=== PATIENT | male | born 1975 | race African-American/Black ===

== ENCOUNTER 2018-03-22 10:55 | Emergency (ER) | payer SELFPAY ==
[2018-03-22 11:45] LABS: #Lymphocytes 1.2 thou/uL (1.20-3.40); #Monocytes 0.4 thou/uL (0.11-0.59); #Neutrophils 2.2 thou/uL (1.40-6.50); %Basophils 0.7 % (0.0-1.0); %Eosinophils 0.8 % (0.0-10.0); %Lymphocytes 30.7 % (21.0-51.0); %Monocytes 10.3 % (0.0-10.0); %Neutrophils 57.4 % (42.0-75.0); Hemoglobin 15.2 g/dL (14.0-18.0); Mean Corpuscular HGB CONC 35.4 g/dL (32.0-36.0); Mean Corpuscular Hemoglobin 32.9 pg (27.0-31.0); Mean Corpuscular Volume 92.9 fL (78.0-98.0); Mean Platelet Volume 6.2 fL (7.4-10.4); Platelet Count 261 thou/uL (130-400); RBC Distribution Width 10.9 % (11.5-14.5); Red Blood Cell (RBC) Count 4.61 mill/uL (4.70-6.10); White Blood Cell (WBC) Count 3.8 thou/uL (4.8-10.8)
[2018-03-22 12:04] LABS: Anion Gap 14 mmol/L (10-20); BUN (Urea Nitrogen) 5 mg/dL (8.9-20.6); Calc. Creatinine Clearance 0 mL/min (70-130); Calcium 9.3 mg/dL (7.8-10.44); Carbon Dioxide 19 mmol/L (22-29); Chloride 104 mmol/L (98-107); Estimated GFR-MDRD Greater than 90; Glucose 101 mg/dL (70-105); Potassium 4.2 mmol/L (3.5-5.1); Sodium 133 mmol/L (136-145)
--- NOTE | 2018-03-22 12:35 | RAD ---
LEFT FOOT THREE VIEWS: HISTORY: Left foot wound. Drainage. FINDINGS: Soft tissue swelling and skin defect are evident at the lateral margin of the forefoot, overlying the fifth metatarsal head. Lisfranc joint alignment is anatomic with mild osteophytosis. No acute frac ture, dislocation, or aggressive osseous destruction. Aside from the ulceration, no soft tissue gas is reliably demonstrated. IMPRESSION: 1. No acute osseous abnormalities are demonstrated. 2. Osteoarthritic changes, left foot. POS: [facility]
== END 2018-03-22 12:27 | disposition home or self-care (01) ==
LOC: ERS 10:55
DX: L97.429 Non-pressure chronic ulcer of left heel and midfoot with unspecified severity (principal); F25.9 Schizoaffective disorder, unspecified; F17.210 Nicotine dependence, cigarettes, uncomplicated; Z79.899 Other long term (current) drug therapy
CPT/HCPCS: 36415; 80048; 85025; 85652; 86140

== ENCOUNTER 2018-04-04 17:15 | Emergency (ER) | payer SELFPAY ==
--- NOTE | 2018-04-04 20:09 | RAD ---
THREE VIEW LEFT FOOT: 04/04/18 CLINICAL HISTORY: Left foot pain, wound. FINDINGS: There is marked soft tissue prominence of the lateral aspect of the left foot, distally. There is a c ircumscribed areas of increased density measuring approximately 7 mm. No fracture or dislocation. IMPRESSION: Marked abnormal soft tissues of the lateral aspect of the distal left foot. Within this region, there is a 7 mm radiopaque density that may represent a foreign body. This underlies the lateral, plantar skin surface. Correlate clinically. POS: [facility]
== END 2018-04-04 20:58 | disposition home or self-care (01) ==
LOC: ERS 17:15
DX: S91.302A Unspecified open wound, left foot, initial encounter (principal); L03.116 Cellulitis of left lower limb; F17.210 Nicotine dependence, cigarettes, uncomplicated; X58.XXXA Exposure to other specified factors, initial encounter

== ENCOUNTER 2018-05-18 18:39 | Emergency (ER) | payer SELFPAY ==
[2018-05-18] MEDS ORDERED: Ketorolac Tromethamine 30 MG/ML VIAL ONE (20:23)
[2018-05-18] MEDS ORDERED: HYDROcodone/Acetaminophen 10/325 mg Tablet ONE (20:23)
== END 2018-05-18 20:52 | disposition home or self-care (01) ==
LOC: ERS 18:39
DX: M54.5 Low back pain (principal); F17.210 Nicotine dependence, cigarettes, uncomplicated; X50.9XXA Other and unspecified overexertion or strenuous movements or postures, initial encounter
CPT/HCPCS: 96372; J1885

== ENCOUNTER 2018-09-26 18:45 | Inpatient (IN) | payer SELFPAY ==
[2018-09-26 19:45] LABS: Lavender RECEIVED; Red RECEIVED
[2018-09-26 19:51] LABS: #Basophils 0.1 thou/uL (0.0-0.2); #Eosinphils 0.1 thou/uL (0.0-0.7); #Lymphocytes 2.3 thou/uL (1.20-3.40); #Monocytes 0.5 thou/uL (0.11-0.59); #Neutrophils 8.1 thou/uL (1.40-6.50); %Basophils 0.5 % (0.0-1.0); %Eosinophils 0.7 % (0.0-10.0); %Lymphocytes 20.7 % (21.0-51.0); %Monocytes 4.8 % (0.0-10.0); %Neutrophils 73.2 % (42.0-75.0); Hemoglobin 13.7 g/dL (14.0-18.0); Mean Corpuscular HGB CONC 33.3 g/dL (32.0-36.0); Mean Corpuscular Hemoglobin 31.1 pg (27.0-31.0); Mean Corpuscular Volume 93.5 fL (78.0-98.0); Mean Platelet Volume 5.8 fL (7.4-10.4); Platelet Count 586 thou/uL (130-400); RBC Distribution Width 11.2 % (11.5-14.5); White Blood Cell (WBC) Count 11.1 thou/uL (4.8-10.8)
[2018-09-26 20:09] LABS: ALT (SGPT) 20 U/L (8-55); AST (SGOT) 31 U/L (5-34); Albumin 3.6 g/dL (3.5-5.0); Alkaline Phosphatase 129 U/L (40-150); Anion Gap 17 mmol/L (10-20); BUN (Urea Nitrogen) 7 mg/dL (8.9-20.6); Bilirubin, Total 0.6 mg/dL (0.2-1.2); Calc. Creatinine Clearance 0 mL/min (70-130); Calcium 9.3 mg/dL (7.8-10.44); Carbon Dioxide 20 mmol/L (22-29); Chloride 97 mmol/L (98-107); Estimated GFR-MDRD Greater than 90; Glucose 107 mg/dL (70-105); Protein, Total 9.6 g/dL (6.0-8.3); Sodium 130 mmol/L (136-145)
--- NOTE | 2018-09-26 20:10 | RAD ---
AP VIEW CHEST: 09/26/18 HISTORY: Preoperative chest radiograph. 42-year-old male. AP view chest demonstrates the lungs to be well aerated. No evidence of active intrathoracic disease seen. No evidence of effusions, pneumonia, or pneumothorax seen. IMPRESSION: Unremarkable AP view chest. POS: [facility]
--- NOTE | 2018-09-26 20:21 | RAD ---
THREE VIEWS LEFT FOOT: 09/26/18 HISTORY: Nonhealing wound left foot. AP, lateral, and oblique views left foot demonstrates an area of gas within the soft tissues in the r egion of the fifth metatarsophalangeal joint. There has been erosive destruction of the distal aspect of the fifth left metatarsal. Findings compatible with an ulcer. There also appears to be superior s ubluxation of the proximal portion of the proximal phalanx compared to the fifth left metatarsal head . IMPRESSION: Ulceration adjacent to and involving the fifth left metatarsophalangeal joint. POS: [facility]
[2018-09-26] MEDS ORDERED: Adacel (T-DAP) 0.5 ML SYRINGE ONE (20:37)
[2018-09-26] MEDS ORDERED: Acetaminophen 500 MG TAB ONE (20:37)
[2018-09-26] MEDS ORDERED: Piperacillin/Tazobactam 4.5 GM VIAL ONE (20:37)
[2018-09-26] MEDS ORDERED: Acetaminophen 325 MG TAB PO PRN (22:56)
[2018-09-26] MEDS ORDERED: Ondansetron ODT 4 MG TAB SL PRN (22:56)
[2018-09-26] MEDS ORDERED: Ondansetron PF 4 MG/2 ML Vial IVP PRN (22:56)
[2018-09-26] MEDS ORDERED: traMADol HCl 50 MG TAB PO SCH (23:45)
[2018-09-27 00:44] VITALS: BMI 26.0
[2018-09-27] MEDS ORDERED: Senokot S 8.6-50 MG TAB PO PRN (01:17)
[2018-09-27] MEDS: HYDROcodone/Acetaminophen 10/325 mg Tablet PO PRN ×2 (01:52→19:32)
[2018-09-27] MEDS: Nicotine 14 MG PATCH TD SCH (01:53)
[2018-09-27] MEDS: Sodium Chloride 0.9% 1,000 ML IV SCH ×2 (01:54→16:22)
[2018-09-27] MEDS ORDERED: Piperacillin/Tazobactam 4.5 GM in Sodium Chloride 0.9% 100 ML IVPB SCH (03:00)
--- NOTE | 2018-09-27 03:30 | HP ---
REASON FOR ADMISSION: Osteomyelitis to left lateral distal foot. HISTORY OF PRESENT ILLNESS AND REVIEW OF SYSTEMS: Mr. Salcedo is a pleasant 42-year-old man with no past medical history, who presents due to increased pain and swelling to the left lower leg. The patient states he has had issues with a wound on the plantar surface of the fifth MTP. He states he has completed multiple courses of antibiotics in last six months. The wound never did heal. He recalls having some sort of collection with a callus that he removed followed by immediate drainage of green discharge initially. Since then, his wound never did heal. The patient states he has had frequent ER attendances and has again been given multiple courses of antibiotics. The patient last attended two months ago. He essentially gave up on seeking medical attention for it. However, in recent days, his leg has become increasingly painful with inability to bear weight and more swollen. Apparently, his brother takes medications for lower leg edema and offered him a tablet. However, he only took it once. He has not had any dizziness or syncope. No chest pain or palpitations. The patient reports feeling generally unwell in the last two days with occasional sweats. He denies any nausea or vomiting. Denies any headaches. No abdominal pain. Denies any bowel changes or urinary symptoms. Has not noted any skin changes elsewhere. All other review of systems are negative. PAST MEDICAL HISTORY: 1. Depression. 2. Schizophrenia. 3. Schizoaffective disorder. PAST SURGICAL HISTORY: None. SOCIAL HISTORY: The patient reports drinking 2 to 3, 24 ounces of beer a day and does experience tremors occasionally in the mornings if he does not drink. He smokes a half a pack a day. Denies any illicit drug use. ALLERGIES: NO KNOWN DRUG ALLERGIES. CURRENT MEDICATIONS: None. PHYSICAL EXAMINATION: GENERAL: The patient appears well-developed, well-nourished, and in no acute distress. VITAL SIGNS: Temperature 98.6, pulse 85, respirations 16, O2 saturation 96% on room air, and blood pressure 107/62. HEENT: Normocephalic and atraumatic. Pupils are equal, round, and reactive to light. Sclerae are without icterus. Oropharynx is clear. NECK: Supple without lymphadenopathy. LUNGS: Clear to auscultation bilaterally without wheezes, rales, or rhonchi. CARDIAC: Regular rate and rhythm without audible murmurs, rubs, or gallops. ABDOMEN: Soft, nontender, and nondistended. Normoactive bowel sounds present. EXTREMITIES: The patient has an open wound on the lateral sole of his foot along the 5th MTP, measuring approximately 1.5 cm. The bone appears to be visible given its depth. It seems to be tracking through as there is a smaller of wound on the lateral aspect of his 5th MTP. Dressing, clean dressing in place. He has swelling of the lower extremity extending up to his knee with no significant warmth to touch. There was a palpable cord along the calf with calf tenderness on light palpation. No pitting edema. Sensation is normal and pedal pulses present. NEUROLOGIC: Alert and oriented x3. SKIN: Without rash or jaundice. LABORATORY DATA: White blood count 11.1, hemoglobin 13.7, and hematocrit 41.1. Sodium 130, potassium 4.0, BUN 7, creatinine 0.81, GFR greater than 90. LFTs unremarkable. Albumin 3.6. IMAGING DATA: 1. Chest x-ray on 09/26/2018, unremarkable. 2. Foot x-ray on 09/26/2018. Ulceration adjacent to and involving the 5th left metatarsophalangeal joint. Erosive destruction of the distal aspect of the 5th left metatarsal. There appears to be superior subluxation of the proximal portion of the proximal phalanx compared to the 5th left metatarsal head. Area of gas within the soft tissues in the region of the 5th metatarsophalangeal joint. IMPRESSION AND PLAN: Mr. Salcedo is being admitted for management of the following conditions: 1. Open wound to left metatarsal. The patient was placed on IV antibiotics due to concerns for osteomyelitis. Consult placed to General Surgery. The patient has two to three photos had been taken, and the wound has been dressed. Wound care consult placed as well. 2. Pain. Currently pain relieved with tramadol. Continue to monitor. 3. Rule out deep venous thrombosis. There was a palpable cord on the left lower extremity. The patient has had reduced mobility in that leg due to inability to bear weight. Venous Doppler of the left leg requested. 4. Gastrointestinal prophylaxis. 5. Venous thromboembolism prophylaxis. No mechanical SCDs given suspected deep vein thrombosis and significant swelling. Hold Lovenox as suspected DVT and also possible surgical intervention, pending surgical review tomorrow. 6. Diet. N.p.o. after midnight. The patient's case was discussed with Dr. Soto, who agrees upon care as described above. Job ID: [id number]
[2018-09-27 04:34] LABS: #Basophils 0.1 thou/uL (0.0-0.2); #Eosinphils 0.2 thou/uL (0.0-0.7); #Lymphocytes 2.2 thou/uL (1.20-3.40); #Monocytes 0.6 thou/uL (0.11-0.59); #Neutrophils 3.9 thou/uL (1.40-6.50); %Basophils 0.9 % (0.0-1.0); %Eosinophils 2.3 % (0.0-10.0); %Lymphocytes 31.1 % (21.0-51.0); %Monocytes 8.5 % (0.0-10.0); %Neutrophils 57.1 % (42.0-75.0); Hemoglobin 11.9 g/dL (14.0-18.0); Mean Corpuscular HGB CONC 33.5 g/dL (32.0-36.0); Mean Corpuscular Hemoglobin 31.3 pg (27.0-31.0); Mean Corpuscular Volume 93.4 fL (78.0-98.0); Mean Platelet Volume 5.7 fL (7.4-10.4); Platelet Count 474 thou/uL (130-400); RBC Distribution Width 11.1 % (11.5-14.5); Red Blood Cell (RBC) Count 3.79 mill/uL (4.70-6.10); White Blood Cell (WBC) Count 6.9 thou/uL (4.8-10.8)
[2018-09-27 04:47] LABS: ALT (SGPT) 15 U/L (8-55); AST (SGOT) 22 U/L (5-34); Albumin 2.9 g/dL (3.5-5.0); Alkaline Phosphatase 103 U/L (40-150); Anion Gap 11 mmol/L (10-20); BUN (Urea Nitrogen) 8 mg/dL (8.9-20.6); Bilirubin, Total 0.5 mg/dL (0.2-1.2); Calc. Creatinine Clearance 147 mL/min (70-130); Calcium 8.5 mg/dL (7.8-10.44); Carbon Dioxide 26 mmol/L (22-29); Chloride 102 mmol/L (98-107); Estimated GFR-MDRD Greater than 90; Globulin 4.8 g/dL (2.4-3.5); Glucose 107 mg/dL (70-105); Protein, Total 7.7 g/dL (6.0-8.3); Sodium 135 mmol/L (136-145)
[2018-09-27] MEDS ORDERED: Vancomycin HCl 1 GM in Premix Bag 1 BAG IVPB SCH (06:15)
[2018-09-27] MEDS: Vancomycin HCl 1.25 GM in Sodium Chloride 0.9% 250 ML 250 ML IVPB SCH ×3 (06:57→23:52)
--- NOTE | 2018-09-27 08:30 | ULT ---
LEFT LOWER EXTREMITY VENOUS ULTRASOUND: HISTORY: Left lower extremity foot ulcer and palpable cord in the mid left calf. Left calf pain. TECHNIQUE: Multiplanar, rodriguez scale, and color Doppler images were obtained in a left lower extremity venous ultr asound. Spectral analysis of the Doppler waveforms was performed. FINDINGS: The left common femoral vein, profunda femoral vein, superficial femoral vein, and popliteal vein are normal in appearance without visible thrombus. These vessels demonstrate normal compression, flow, and augmentation. The posterior tibial vein and greater saphenous vein are also patent. There is a prominent lymph node in the left inguinal region measuring 3.4 cm in greatest dimension. This lymph node still has a fatty hilum. IMPRESSION: No evidence of left lower extremity deep vein thrombosis. POS: [facility]
[2018-09-27 09:25] LABS: Bilirubin Negative (Negative); Blood, Urine Negative (Negative); Clarity CLEAR (Clear); Glucose, Urine (Dipstick) Negative (Negative); Leukocyte Negative (Negative); Nitrite Negative (Negative); Protein, Urine (Dipstick) Negative (Neg-Trace); Specific Gravity, Urine 1.021 (1.002-1.036); Urobilinogen 0.2 mg/dL (0.2-1.0)
[2018-09-27] MEDS ORDERED: Fentanyl 100 MCG/2 ML VIAL ONE (10:40)
[2018-09-27] MEDS ORDERED: Midazolam HCl 2 mg/2 ml Vial ONE (10:40)
--- NOTE | 2018-09-27 11:08 | HP ---
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 He is nondiabetic. He smokes half pack a day, drinks 3 to 4 beers a day. He has been dealing with a left foot wound for the past year. The patient is not , but lives with his girlfriend. She was on speaker phone as I discussed issues with him. SOCIAL HISTORY: Tobacco 1/2 pack per day. Alcohol 3 to 4 beers a day. MEDICATIONS: None. PAST SURGICAL HISTORY: Noncontributory. PAST MEDICAL HISTORY: Noncontributory except for depression, schizoaffective disorder, and schizophrenia. DRUG USE: None. ALLERGIES: NONE. PHYSICAL EXAMINATION: VITAL SIGNS: 6 feet, 192 pounds, 26 BMI. HEAD, EARS, EYES, NOSE, AND THROAT: Unremarkable. LUNGS: Clear to auscultation. CARDIAC: Regular rate and rhythm without murmur or gallop. ABDOMEN: Soft and nontender. Palpable femoral, popliteal, dorsalis pedis, posterior tibial pulses. Left foot reveals a plantar ulcer just plantar lateral overlying the 5th metatarsophalangeal joint. Probing of this reveals that it extends into the bone, there is exposed bone. There is thickened skin and evidence of chronic inflammation with hyperpigmentation of the skin. LABORATORY DATA: White count 11 on admission, 6.9 this morning; hemoglobin 11.9. Sodium 135, potassium 4.0, BUN 8, creatinine 0.79. Liver function tests normal. Glucose 107. X-rays, soft tissue changes. No evident osteomyelitis. ASSESSMENT AND PLAN: 1. Ulceration, left foot, present for a year. Clinically, bone is involved, although radiologic views on x-rays, it is not. There is no evidence of osteomyelitis, but clinically it involves bone. His bone is exposed in this large plantar lateral wound beneath the fifth metatarsophalangeal joint. We would recommend amputation of left 5th toe metatarsal, wound VAC application, healing by secondary intention. He should continue intravenous antibiotics in the hospital and 2 to 3 days postoperative after [facility] wound VAC is available, he could be discharged home as outpatient with outpatient wound care [facility] twice a week VAC changes. I will view the wound in Wound Care in 2 weeks. Orthotics postop shoe will be ordered and used and he is instructed to weight bear as tolerated for activity around the house postoperatively. He should avoid prolonged standing and sitting and abstain from work for the first 2 weeks. I will re-evaluate his wound in outpatient wound care in 2 weeks to address his return to work and further treatment. I expect him to be discharged home with oral antibiotics once the infected bone and nidus is resected. This wound will not heal without surgical intervention and will require amputation. 2. Tobacco abuse. Encouraged tobacco cessation. 3. Alcohol use. Encouraged alcohol cessation. 4. Schizoaffective disorder. Job ID: [id number]
[2018-09-27] MEDS ORDERED: Ibuprofen 600 MG TAB PO PRN (11:30)
[2018-09-27] MEDS ORDERED: traMADol HCl 50 MG TAB PO PRN (11:30)
[2018-09-27] MEDS ORDERED: Acetaminophen 500 MG TAB PO PRN (11:30)
[2018-09-27] MEDS ORDERED: Ondansetron HCl/PF 4 MG/2 ML Vial IVP PRN (11:52)
[2018-09-27] MEDS ORDERED: Promethazine HCl 25 MG/ML VIAL IM PRN (11:52)
[2018-09-27] MEDS ORDERED: Promethazine HCl 25 MG/ML VIAL SLOW IVP PRN (11:52)
[2018-09-27] MEDS ORDERED: Lidocaine 1% PF 5 ML VIAL ONE (12:13)
[2018-09-27] MEDS ORDERED: Ondansetron PF 4 MG/2 ML Vial ONE (12:13)
[2018-09-27] MEDS ORDERED: Dexamethasone 20 MG/5 ML VIAL ONE (12:13)
[2018-09-27] MEDS ORDERED: PHENYLEPHRINE-NS 100 MCG/ML 10 ML SYRINGE ONE (12:13)
[2018-09-27] MEDS ORDERED: PROPOFOL 200 MG/20 ML VIAL ONE (12:13)
[2018-09-27] MEDS ORDERED: Ketorolac Tromethamine 30 MG/ML VIAL ONE (12:13)
[2018-09-27] MEDS: Famotidine 20 MG TAB PO SCH ×2 (13:07→19:34)
[2018-09-27] MEDS ORDERED: Lorazepam 0.5 MG TAB PO PRN (13:56)
--- NOTE | 2018-09-27 14:00 | PDOC.PN ---
- Subjective Encounter Start Date: 09/27/18 Encounter Start Time: 09:00 Patient seen and examined for foot infection. No fever/chills. No new complaints. No overnight events - Objective Resuscitation Status - Order Detail: 09/27/18 01:17 Resuscitation Status Routine Co-Sign Provider: Resuscitation Status: FULL: Full Resuscitation MAR Reviewed: Yes Vital Signs & Weight: Vital Signs (12 hours) Temp Pulse Resp BP Pulse Ox 09/27/18 13:00 98.5 F 79 16 136/79 99 09/27/18 12:00 98.4 F 80 16 136/79 100 09/27/18 08:00 97.5 F L 65 18 118/75 100 09/27/18 04:00 97.6 F 71 20 96/60 99 Weight Admit Weight 192 lb Weight 192 lb I&O: 09/26/18 09/27/18 09/28/18 06:59 06:59 06:59 Intake Total 200 Balance 200 Result Diagrams: 09/27/18 04:16 09/27/18 04:16 Additional Labs: Laboratory Tests 09/27/18 04:16 C-Reactive Protein 10.10 H Radiology Reviewed by me: Yes (XR foot - no osteomyelitis) Phys Exam - Physical Examination Constitutional: NAD Respiratory: no wheezing, no rales, no rhonchi, clear to auscultation bilateral Cardiovascular: RRR, no rub no heaves/pulsations Gastrointestinal: soft, non-tender, no distention, positive bowel sounds Musculoskeletal: no edema left foot ulcer with dressing + Neurological: non-focal, normal sensation, moves all 4 limbs Psychiatric: normal affect, A&O x 3 Dx/Plan (1) Foot infection Code(s): L08.9 - LOCAL INFECTION OF THE SKIN AND SUBCUTANEOUS TISSUE, UNSP Status: Acute Comment: ?Osteomyelitis (2) Tobacco dependence Code(s): F17.200 - NICOTINE DEPENDENCE, UNSPECIFIED, UNCOMPLICATED Status: Acute (3) Chronic alcohol use Code(s): Z72.89 - OTHER PROBLEMS RELATED TO LIFESTYLE Status: Acute (4) Schizophrenia Code(s): F20.9 - SCHIZOPHRENIA, UNSPECIFIED Status: Acute (5) Hyponatremia Code(s): E87.1 - HYPO-OSMOLALITY AND HYPONATREMIA Status: Acute (6) Metabolic acidosis Code(s): E87.2 - ACIDOSIS Status: Acute - Plan cont current plan of care, continue antibiotics, DVT proph w/SCDs Await gen surg input -: AM labs -: A1c in AM -: NPO for surgical intervention Review of Systems - Review of Systems Respiratory: negative: Cough, Dry, Shortness of Breath, Hemoptysis, SOB with Excertion, Pleuritic Pain, Sputum, Wheezing Cardiovascular: negative: chest pain, palpitations, orthopnea, paroxysmal nocturnal dyspnea, edema, light headedness, other - Medications/Allergies Allergies/Adverse Reactions: Allergies Allergy/AdvReac Type Severity Reaction Status Date / Time No Known Allergies Allergy Verified 09/26/18 23:37 Medications: Current Medications Acetaminophen (Tylenol) 1,000 mg PO Q6H PRN PRN Reason: Moderate to Severe Pain (6-10) Hydrocodone Bitart/Acetaminophen ([place] 10/325) 2 tab PO Q4H PRN PRN Reason: Pain Last Admin: 09/27/18 01:52 Dose: 2 tab Famotidine (Pepcid) 20 mg PO BID [facility] Last Admin: 09/27/18 13:07 Dose: Not Given Fentanyl (Pacu-Sublimaze) 50 mcg SLOW IVP Q10MIN PRN PRN Reason: Moderate to Severe Pain (6-10) Stop: 09/27/18 14:53 Folic Acid (Folvite) 1 mg PO DAILY [facility] Sodium Chloride (Normal Saline 0.9%) 1,000 mls @ 75 mls/hr IV .[id number] [facility] Last Admin: 09/27/18 01:54 Dose: 1,000 mls Vancomycin HCl 1.25 gm/ Sodium (Chloride) 250 mls @ 166.667 mls/hr IVPB Q8H [facility] Last Admin: 09/27/18 06:57 Dose: 250 mls Piperacillin Sod/Tazobactam (Sod 3.375 gm/ Sodium Chloride) 100 mls @ 200 mls/ hr IVPB Q6H [facility] Ibuprofen (Motrin) 600 mg PO Q6H PRN PRN Reason: Mild-Moderate Pain (1-5) Lorazepam (Ativan) 0.5 mg PO Q4H PRN PRN Reason: ASE >9 Miscellaneous Medication (Pharmacy To Dose) 1 each IVPB ASDIR [facility] Multivitamins (Theragran) 1 tab PO DAILY [facility] Nicotine (Nicoderm Patch) 14 mg TD Q24HR [facility] Last Admin: 09/27/18 01:53 Dose: 14 mg Ondansetron HCl (Pacu-Zofran) 4 mg IVP ONE PRN PRN Reason: Nausea/Vomiting Stop: 09/27/18 14:53 Promethazine HCl (Pacu-Phenergan) 6.25 mg SLOW IVP ONE PRN PRN Reason: Nausea/Vomiting Stop: 09/27/18 14:53 Promethazine HCl (Pacu-Phenergan) 6.25 mg IM ONE PRN PRN Reason: Nausea/Vomiting Stop: 09/27/18 14:53 Senna/Docusate Sodium (Senokot S) 2 tab PO BID PRN PRN Reason: Constipation Sodium Chloride (Flush - Normal Saline) 10 ml IVF Q12HR PRN PRN Reason: Saline Flush Sodium Chloride (Flush - Normal Saline) 10 ml IVF Q12HR [facility] Last Admin: 09/27/18 12:59 Dose: Not Given Sodium Chloride (Flush - Normal Saline) 10 ml IVF PRN PRN PRN Reason: Saline Flush Thiamine HCl (Thiamine) 100 mg PO DAILY [facility] Tramadol HCl (Ultram) 50 mg PO Q6H PRN PRN Reason: Moderate Pain (4-6) Tramadol HCl (Ultram) 100 mg PO Q6H PRN PRN Reason: Severe Pain (7-10)
[2018-09-27] MEDS: Piperacillin/Tazobactam 3.375 GM in Sodium Chloride 0.9% 100 ML IVPB SCH ×3 (14:38→22:35)
--- NOTE | 2018-09-27 17:16 | OP ---
DATE OF PROCEDURE: 09/27/2018 PREOPERATIVE DIAGNOSIS: Nondiabetic infection, left foot with osteomyelitis, metatarsal and phalanx, left foot with open wound, neuropathic in character, communicating to the metatarsophalangeal joint. PROCEDURE PERFORMED: Ray amputation of left 5th metatarsal and toe with wound left open to heal by secondary intention and wound care placed a wound VACs. Excellent bleeding. Note, excellent blood supply and no evidence of PAD. Palpable pulses. Excellent bleeding at the time of operation. SURGEON: Celio Cano MD. ANESTHESIA: General. DESCRIPTION OF PROCEDURE: The patient was taken to the operating room under general anesthesia. Left lower extremity was prepared with ChloraPrep and draped in routine fashion. Incision was made for ray amputation of left 5th toe and metatarsal preserving as much skin as possible while excising the ulceration plantar lateral left foot. Incision was carried down through skin and subcutaneous tissue of the metatarsal, transected with a bone cutter resecting approximately with rongeurs and irrigated. Resected connective tissue sharply, and Wound Care Team arrived to place a wound VAC after hemostasis obtained with cautery. Job ID: [id number]
[2018-09-27 22:27] LABS: Vancomycin, Trough 13.6 ug/mL
[2018-09-28] MEDS: Nicotine 14 MG PATCH TD SCH (02:30)
[2018-09-28 04:19] LABS: #Lymphocytes 1.2 thou/uL (1.20-3.40); #Monocytes 0.3 thou/uL (0.11-0.59); #Neutrophils 5.9 thou/uL (1.40-6.50); %Basophils 0.2 % (0.0-1.0); %Eosinophils 0.6 % (0.0-10.0); %Lymphocytes 15.5 % (21.0-51.0); %Monocytes 4.3 % (0.0-10.0); %Neutrophils 79.4 % (42.0-75.0); Hemoglobin 11.5 g/dL (14.0-18.0); Mean Corpuscular HGB CONC 33.5 g/dL (32.0-36.0); Mean Corpuscular Hemoglobin 31.8 pg (27.0-31.0); Mean Corpuscular Volume 94.8 fL (78.0-98.0); Mean Platelet Volume 5.8 fL (7.4-10.4); Platelet Count 399 thou/uL (130-400); Red Blood Cell (RBC) Count 3.63 mill/uL (4.70-6.10); White Blood Cell (WBC) Count 7.5 thou/uL (4.8-10.8)
[2018-09-28] MEDS: Piperacillin/Tazobactam 3.375 GM in Sodium Chloride 0.9% 100 ML IVPB SCH ×4 (04:23→22:55)
[2018-09-28 04:25] LABS: Hemoglobin A1c 5.3 % (4.0-6.0)
[2018-09-28] MEDS: HYDROcodone/Acetaminophen 10/325 mg Tablet PO PRN (04:32)
[2018-09-28 04:37] LABS: Anion Gap 9 mmol/L (10-20); BUN (Urea Nitrogen) 7 mg/dL (8.9-20.6); Calc. Creatinine Clearance 164 mL/min (70-130); Calcium 8.5 mg/dL (7.8-10.44); Carbon Dioxide 26 mmol/L (22-29); Chloride 103 mmol/L (98-107); Estimated GFR-MDRD Greater than 90; Glucose 137 mg/dL (70-105); Potassium 4.5 mmol/L (3.5-5.1); Sodium 133 mmol/L (136-145)
[2018-09-28] MEDS: Vancomycin HCl 1.25 GM in Sodium Chloride 0.9% 250 ML 250 ML IVPB SCH ×2 (07:11→15:09)
[2018-09-28] MEDS: Multivit, Therapeutic 1 TAB PO SCH (08:10)
[2018-09-28] MEDS: Folic Acid 1 MG TAB PO SCH (08:10)
[2018-09-28] MEDS: Famotidine 20 MG TAB PO SCH (08:11)
--- NOTE | 2018-09-28 17:01 | PRG ---
DATE OF SERVICE: Tommie Salcedo is doing well today. He has had pain. He wants to go home. We are awaiting cultures from his wound. He is status post amputation of left 5th toe and metatarsal. Wound VAC in place. We are awaiting for [facility] wound VAC approval. Dr. Covarrubias, who is covering this weekend, will see him as needed. I will see him Monday if he is still in the hospital. He can be discharged home anytime on oral antibiotics once sensitivities are back and wound VAC is approved. He has outpatient wound care, [facility] VAC care next week. Job ID: [id number]
[2018-09-28] MEDS: Sodium Chloride 0.9% 1,000 ML IV SCH (17:06)
--- NOTE | 2018-09-28 18:05 | PDOC.PN ---
- Subjective Encounter Start Date: 09/28/18 Encounter Start Time: 08:30 Patient seen and examined for foot infection s/p surgery. Pain controlled. No new complaints. No overnight events - Objective Resuscitation Status - Order Detail: 09/27/18 01:17 Resuscitation Status Routine Co-Sign Provider: Resuscitation Status: FULL: Full Resuscitation MAR Reviewed: Yes Vital Signs & Weight: Vital Signs (12 hours) Temp Pulse Resp BP Pulse Ox 09/28/18 08:00 97.5 F L 54 L 18 142/83 H 99 Weight Admit Weight 192 lb Weight 192 lb I&O: 09/27/18 09/28/18 09/29/18 06:59 06:59 06:59 Intake Total 3060 Balance 3060 Result Diagrams: 09/28/18 04:12 09/28/18 04:12 Additional Labs: Laboratory Tests 09/28/18 04:12 Hemoglobin A1c 5.3 Laboratory Tests 09/27/18 04:16 C-Reactive Protein 10.10 H Phys Exam - Physical Examination Constitutional: NAD Neck: no JVD Respiratory: no wheezing, no rales, no rhonchi, clear to auscultation bilateral Cardiovascular: RRR, no rub, gallop no heaves Gastrointestinal: soft, non-tender, no distention, positive bowel sounds Musculoskeletal: no edema, pulses present foot dressing with wound vac+ Neurological: non-focal, normal sensation, moves all 4 limbs Psychiatric: normal affect, A&O x 3 Skin: no rash Dx/Plan (1) Foot infection Code(s): L08.9 - LOCAL INFECTION OF THE SKIN AND SUBCUTANEOUS TISSUE, UNSP Status: Acute Comment: ?Osteomyelitis, s/p amputation of 5th metatarsal and toe (2) Tobacco dependence Code(s): F17.200 - NICOTINE DEPENDENCE, UNSPECIFIED, UNCOMPLICATED Status: Acute (3) Chronic alcohol use Code(s): Z72.89 - OTHER PROBLEMS RELATED TO LIFESTYLE Status: Acute (4) Schizophrenia Code(s): F20.9 - SCHIZOPHRENIA, UNSPECIFIED Status: Acute (5) Hyponatremia Code(s): E87.1 - HYPO-OSMOLALITY AND HYPONATREMIA Status: Acute (6) Metabolic acidosis Code(s): E87.2 - ACIDOSIS Status: Acute - Plan cont current plan of care, continue antibiotics, DVT proph w/SCDs Cont wound care/vac -: Cont current meds as below -: DC IVF -: Cont IV Vancomycin and Zosyn -: Monitor Vancomycin level Review of Systems - Review of Systems Respiratory: negative: Cough, Dry, Shortness of Breath, Hemoptysis, SOB with Excertion, Pleuritic Pain, Sputum, Wheezing Cardiovascular: negative: chest pain, palpitations, orthopnea, paroxysmal nocturnal dyspnea, edema, light headedness, other Gastrointestinal: negative: Nausea, Vomiting, Abdominal Pain, Diarrhea, Constipation, Melena, Hematochezia, Other - Medications/Allergies Allergies/Adverse Reactions: Allergies Allergy/AdvReac Type Severity Reaction Status Date / Time No Known Allergies Allergy Verified 09/26/18 23:37 Medications: Current Medications Acetaminophen (Tylenol) 1,000 mg PO Q6H PRN PRN Reason: Moderate to Severe Pain (6-10) Famotidine (Pepcid) 20 mg PO BID [facility] Last Admin: 09/28/18 08:11 Dose: 20 mg Folic Acid (Folvite) 1 mg PO DAILY [facility] Last Admin: 09/28/18 08:10 Dose: 1 mg Vancomycin HCl 1.25 gm/ Sodium (Chloride) 250 mls @ 166.667 mls/hr IVPB Q8H [facility] Last Admin: 09/28/18 15:09 Dose: 250 mls Piperacillin Sod/Tazobactam (Sod 3.375 gm/ Sodium Chloride) 100 mls @ 200 mls/ hr IVPB Q6H [facility] Last Admin: 09/28/18 17:06 Dose: 100 mls Ibuprofen (Motrin) 600 mg PO Q6H PRN PRN Reason: Mild-Moderate Pain (1-5) Lorazepam (Ativan) 0.5 mg PO Q4H PRN PRN Reason: ASE >9 Miscellaneous Medication (Pharmacy To Dose) 1 each IVPB ASDIR [facility] Multivitamins (Theragran) 1 tab PO DAILY [facility] Last Admin: 09/28/18 08:10 Dose: 1 tab Nicotine (Nicoderm Patch) 14 mg TD Q24HR [facility] Last Admin: 09/28/18 02:30 Dose: 14 mg Senna/Docusate Sodium (Senokot S) 2 tab PO BID PRN PRN Reason: Constipation Sodium Chloride (Flush - Normal Saline) 10 ml IVF Q12HR PRN PRN Reason: Saline Flush Sodium Chloride (Flush - Normal Saline) 10 ml IVF Q12HR [facility] Last Admin: 09/28/18 09:02 Dose: Not Given Sodium Chloride (Flush - Normal Saline) 10 ml IVF PRN PRN PRN Reason: Saline Flush Last Admin: 09/28/18 04:30 Dose: 10 ml Thiamine HCl (Thiamine) 100 mg PO DAILY [facility] Last Admin: 09/28/18 08:10 Dose: 100 mg Tramadol HCl (Ultram) 50 mg PO Q6H PRN PRN Reason: Moderate Pain (4-6) Tramadol HCl (Ultram) 100 mg PO Q6H PRN PRN Reason: Severe Pain (7-10)
[2018-09-28 22:23] LABS: Vancomycin, Trough 12.2 ug/mL
[2018-09-29] MEDS: Famotidine 20 MG TAB PO SCH ×3 (00:17→20:14)
[2018-09-29] MEDS: Nicotine 14 MG PATCH TD SCH (00:17)
[2018-09-29] MEDS: Vancomycin HCl 1.5 GM in Sodium Chloride 0.9% 250 ML 300 ML IVPB SCH ×3 (00:19→16:04)
[2018-09-29] MEDS: Vancomycin HCl 1.25 GM in Sodium Chloride 0.9% 250 ML 250 ML IVPB SCH (02:37)
[2018-09-29] MEDS: Piperacillin/Tazobactam 3.375 GM in Sodium Chloride 0.9% 100 ML IVPB SCH ×4 (04:35→22:28)
[2018-09-29] MEDS ORDERED: Polyethylene Glycol 3350 17 GM Packet PO PRN (08:32)
[2018-09-29] MEDS ORDERED: Senokot 8.6 MG TAB PO PRN (08:32)
[2018-09-29] MEDS ORDERED: Nicotine 14 MG PATCH TD PRN (08:32)
--- NOTE | 2018-09-29 08:34 | PDOC.PN ---
- Subjective Encounter Start Date: 09/29/18 Encounter Start Time: 08:33 Patient seen and examined fot foot infection. Pain controlled. No new complaints. No overnight events - Objective Resuscitation Status - Order Detail: 09/27/18 01:17 Resuscitation Status Routine Co-Sign Provider: Resuscitation Status: FULL: Full Resuscitation MAR Reviewed: Yes Vital Signs & Weight: Vital Signs (12 hours) Temp Pulse Resp BP Pulse Ox 09/29/18 07:39 97.4 F L 65 18 137/93 H 99 Weight Admit Weight 192 lb Weight 192 lb I&O: 09/28/18 09/29/18 09/30/18 06:59 06:59 06:59 Intake Total 3060 3170 Output Total 2100 Balance 3060 1070 Result Diagrams: 09/28/18 04:12 09/28/18 04:12 Phys Exam - Physical Examination Constitutional: NAD Respiratory: no wheezing, no rhonchi Cardiovascular: RRR, no rub Gastrointestinal: soft, non-tender, positive bowel sounds Musculoskeletal: no edema wound vac+ Dx/Plan (1) Foot infection Code(s): L08.9 - LOCAL INFECTION OF THE SKIN AND SUBCUTANEOUS TISSUE, UNSP Status: Acute Comment: ?Osteomyelitis, s/p amputation of 5th metatarsal and toe (2) Tobacco dependence Code(s): F17.200 - NICOTINE DEPENDENCE, UNSPECIFIED, UNCOMPLICATED Status: Acute (3) Chronic alcohol use Code(s): Z72.89 - OTHER PROBLEMS RELATED TO LIFESTYLE Status: Acute (4) Schizophrenia Code(s): F20.9 - SCHIZOPHRENIA, UNSPECIFIED Status: Chronic (5) Hyponatremia Code(s): E87.1 - HYPO-OSMOLALITY AND HYPONATREMIA Status: Chronic (6) Metabolic acidosis Code(s): E87.2 - ACIDOSIS Comment: improved - Plan cont current plan of care, continue antibiotics, DVT proph w/SCDs Cont wound care/vac -: Await outpt wound care/vac approval -: Stable for dc Review of Systems - Review of Systems Respiratory: negative: Cough, Dry, Shortness of Breath, Hemoptysis, SOB with Excertion, Pleuritic Pain, Sputum, Wheezing Cardiovascular: negative: chest pain, palpitations, orthopnea, paroxysmal nocturnal dyspnea, edema, light headedness, other Gastrointestinal: Constipation. negative: Nausea, Vomiting, Abdominal Pain, Diarrhea, Melena, Hematochezia, Other - Medications/Allergies Allergies/Adverse Reactions: Allergies Allergy/AdvReac Type Severity Reaction Status Date / Time No Known Allergies Allergy Verified 09/26/18 23:37 Medications: Current Medications Acetaminophen (Tylenol) 1,000 mg PO Q6H PRN PRN Reason: Moderate to Severe Pain (6-10) Docusate Sodium (Colace) 100 mg PO BID [facility] Famotidine (Pepcid) 20 mg PO BID [facility] Last Admin: 09/29/18 00:17 Dose: 20 mg Folic Acid (Folvite) 1 mg PO DAILY [facility] Last Admin: 09/28/18 08:10 Dose: 1 mg Piperacillin Sod/Tazobactam (Sod 3.375 gm/ Sodium Chloride) 100 mls @ 200 mls/ hr IVPB Q6H [facility] Last Admin: 09/29/18 04:35 Dose: 100 mls Vancomycin HCl 1.5 gm/ Sodium (Chloride) 300 mls @ 200 mls/hr IVPB 0800,1600, 2359 [facility] Last Admin: 09/29/18 00:19 Dose: 300 mls Ibuprofen (Motrin) 600 mg PO Q6H PRN PRN Reason: Mild-Moderate Pain (1-5) Lorazepam (Ativan) 0.5 mg PO Q4H PRN PRN Reason: ASE >9 Miscellaneous Medication (Pharmacy To Dose) 1 each IVPB ASDIR [facility] Multivitamins (Theragran) 1 tab PO DAILY [facility] Last Admin: 09/28/18 08:10 Dose: 1 tab Nicotine (Nicoderm Patch) 14 mg TD Q24HR PRN PRN Reason: Smoking craving Polyethylene Glycol (Miralax) 17 gm PO DAILY PRN PRN Reason: Constipation Senna (Senokot) 2 tab PO HSPRN PRN PRN Reason: Constipation Senna/Docusate Sodium (Senokot S) 2 tab PO BID PRN PRN Reason: Constipation Sodium Chloride (Flush - Normal Saline) 10 ml IVF Q12HR PRN PRN Reason: Saline Flush Sodium Chloride (Flush - Normal Saline) 10 ml IVF Q12HR [facility] Last Admin: 09/29/18 02:36 Dose: Not Given Sodium Chloride (Flush - Normal Saline) 10 ml IVF PRN PRN PRN Reason: Saline Flush Last Admin: 09/29/18 00:18 Dose: 10 ml Thiamine HCl (Thiamine) 100 mg PO DAILY [facility] Last Admin: 09/28/18 08:10 Dose: 100 mg Tramadol HCl (Ultram) 50 mg PO Q6H PRN PRN Reason: Moderate Pain (4-6) Tramadol HCl (Ultram) 100 mg PO Q6H PRN PRN Reason: Severe Pain (7-10) Last Admin: 09/28/18 19:40 Dose: 100 mg
[2018-09-29] MEDS: traMADol HCl 50 MG TAB PO PRN ×2 (08:42→22:28)
[2018-09-29] MEDS: Docusate 100 MG CAP PO SCH ×2 (08:42→20:14)
[2018-09-29] MEDS: Multivit, Therapeutic 1 TAB PO SCH (08:42)
[2018-09-29] MEDS: Folic Acid 1 MG TAB PO SCH (08:43)
[2018-09-29 23:33] LABS: Vancomycin, Trough 17.8 ug/mL
[2018-09-30] MEDS: Vancomycin HCl 1.5 GM in Sodium Chloride 0.9% 250 ML 300 ML IVPB SCH ×3 (00:04→15:41)
[2018-09-30] MEDS: Piperacillin/Tazobactam 3.375 GM in Sodium Chloride 0.9% 100 ML IVPB SCH ×4 (03:33→22:32)
[2018-09-30] MEDS: Docusate 100 MG CAP PO SCH ×2 (08:22→20:20)
[2018-09-30] MEDS: Folic Acid 1 MG TAB PO SCH (08:22)
[2018-09-30] MEDS: Multivit, Therapeutic 1 TAB PO SCH (08:22)
[2018-09-30] MEDS: Famotidine 20 MG TAB PO SCH ×2 (08:22→20:20)
[2018-09-30] MEDS: traMADol HCl 50 MG TAB PO PRN (11:34)
--- NOTE | 2018-09-30 18:47 | PDOC.PN ---
- Subjective Encounter Start Date: 09/30/18 Encounter Start Time: 08:30 Patient seen and examined for foot infection. No fever. No new complaints. No overnight events - Objective Resuscitation Status - Order Detail: 09/27/18 01:17 Resuscitation Status Routine Co-Sign Provider: Resuscitation Status: FULL: Full Resuscitation MAR Reviewed: Yes Vital Signs & Weight: Vital Signs (12 hours) Temp Pulse Resp BP Pulse Ox 09/30/18 08:00 97.6 F 57 L 16 132/94 H 100 Weight Admit Weight 192 lb Weight 192 lb I&O: 09/29/18 09/30/18 10/01/18 06:59 06:59 06:59 Intake Total 3170 1520 3440 Output Total 2100 3725 2650 Balance 1070 -2205 790 Result Diagrams: 09/28/18 04:12 09/28/18 04:12 Phys Exam - Physical Examination Constitutional: NAD Respiratory: no wheezing, no rhonchi Cardiovascular: RRR, no rub Gastrointestinal: soft, positive bowel sounds Musculoskeletal: no edema wound vac+ Neurological: non-focal Dx/Plan (1) Foot infection Code(s): L08.9 - LOCAL INFECTION OF THE SKIN AND SUBCUTANEOUS TISSUE, UNSP Status: Acute Comment: ?Osteomyelitis, s/p amputation of 5th metatarsal and toe (2) Tobacco dependence Code(s): F17.200 - NICOTINE DEPENDENCE, UNSPECIFIED, UNCOMPLICATED Status: Acute Comment: Counselled (3) Chronic alcohol use Code(s): Z72.89 - OTHER PROBLEMS RELATED TO LIFESTYLE Status: Chronic (4) Schizophrenia Code(s): F20.9 - SCHIZOPHRENIA, UNSPECIFIED Status: Chronic (5) Hyponatremia Code(s): E87.1 - HYPO-OSMOLALITY AND HYPONATREMIA Status: Chronic (6) Metabolic acidosis Code(s): E87.2 - ACIDOSIS Comment: improved - Plan cont current plan of care, continue antibiotics, DVT proph w/SCDs Cont current meds as below -: Await outpt woundvac setup -: Change Atbx to PO at dc Review of Systems - Review of Systems Respiratory: negative: Cough, Dry, Shortness of Breath, Hemoptysis, SOB with Excertion, Pleuritic Pain, Sputum, Wheezing Cardiovascular: negative: chest pain, palpitations, orthopnea, paroxysmal nocturnal dyspnea, edema, light headedness, other - Medications/Allergies Allergies/Adverse Reactions: Allergies Allergy/AdvReac Type Severity Reaction Status Date / Time No Known Allergies Allergy Verified 09/26/18 23:37 Medications: Current Medications Acetaminophen (Tylenol) 1,000 mg PO Q6H PRN PRN Reason: Moderate to Severe Pain (6-10) Docusate Sodium (Colace) 100 mg PO BID [facility] Last Admin: 09/30/18 08:22 Dose: 100 mg Famotidine (Pepcid) 20 mg PO BID [facility] Last Admin: 09/30/18 08:22 Dose: 20 mg Folic Acid (Folvite) 1 mg PO DAILY [facility] Last Admin: 09/30/18 08:22 Dose: 1 mg Piperacillin Sod/Tazobactam (Sod 3.375 gm/ Sodium Chloride) 100 mls @ 200 mls/ hr IVPB Q6H [facility] Last Admin: 09/30/18 15:36 Dose: 100 mls Vancomycin HCl 1.5 gm/ Sodium (Chloride) 300 mls @ 200 mls/hr IVPB 0800,1600, 2359 [facility] Last Admin: 09/30/18 15:41 Dose: 300 mls Ibuprofen (Motrin) 600 mg PO Q6H PRN PRN Reason: Mild-Moderate Pain (1-5) Miscellaneous Medication (Pharmacy To Dose) 1 each IVPB ASDIR [facility] Multivitamins (Theragran) 1 tab PO DAILY [facility] Last Admin: 09/30/18 08:22 Dose: 1 tab Nicotine (Nicoderm Patch) 14 mg TD Q24HR PRN PRN Reason: Smoking craving Polyethylene Glycol (Miralax) 17 gm PO DAILY PRN PRN Reason: Constipation Senna (Senokot) 2 tab PO HSPRN PRN PRN Reason: Constipation Senna/Docusate Sodium (Senokot S) 2 tab PO BID PRN PRN Reason: Constipation Sodium Chloride (Flush - Normal Saline) 10 ml IVF Q12HR PRN PRN Reason: Saline Flush Sodium Chloride (Flush - Normal Saline) 10 ml IVF Q12HR [facility] Last Admin: 09/30/18 08:24 Dose: 10 ml Sodium Chloride (Flush - Normal Saline) 10 ml IVF PRN PRN PRN Reason: Saline Flush Last Admin: 09/30/18 15:41 Dose: 10 ml Thiamine HCl (Thiamine) 100 mg PO DAILY [facility] Last Admin: 09/30/18 08:22 Dose: 100 mg Tramadol HCl (Ultram) 50 mg PO Q6H PRN PRN Reason: Moderate Pain (4-6) Last Admin: 09/30/18 11:34 Dose: 50 mg Tramadol HCl (Ultram) 100 mg PO Q6H PRN PRN Reason: Severe Pain (7-10) Last Admin: 09/28/18 19:40 Dose: 100 mg
[2018-09-30 23:41] LABS: Vancomycin, Trough 16.7 ug/mL
[2018-10-01] MEDS: Vancomycin HCl 1.5 GM in Sodium Chloride 0.9% 250 ML 300 ML IVPB SCH ×3 (00:03→16:29)
[2018-10-01] MEDS: traMADol HCl 50 MG TAB PO PRN (01:49)
[2018-10-01] MEDS: Piperacillin/Tazobactam 3.375 GM in Sodium Chloride 0.9% 100 ML IVPB SCH ×3 (05:09→15:49)
[2018-10-01 07:27] VITALS: BP 116/81; TEMP 97.6
[2018-10-01] MEDS: Folic Acid 1 MG TAB PO SCH (08:17)
[2018-10-01] MEDS: Famotidine 20 MG TAB PO SCH (08:17)
[2018-10-01] MEDS: Multivit, Therapeutic 1 TAB PO SCH (08:17)
[2018-10-01] MEDS: Docusate 100 MG CAP PO SCH (08:17)
--- NOTE | 2018-10-02 13:01 | DIS ---
DATE OF ADMISSION: 09/26/2018 DATE OF DISCHARGE: 10/01/2018 DISCHARGE DISPOSITION: Home. FOLLOWUP: 1. Follow up with primary care physician at [facility]. 2. Follow up with Dr. Cano in 2 weeks. 3. Outpatient wound care. ALLERGIES: NO KNOWN DRUG ALLERGIES. THE PATIENT WAS SEEN AND EXAMINED ON THE DAY OF DISCHARGE. DENIES ANY NEW COMPLAINTS. OUTPATIENT WOUND VAC HAS BEEN ARRANGED. DISCHARGE MEDICATIONS: 1. Omnicef 300 mg twice a day for 10 days. 2. Doxycycline 100 mg b.i.d. for 10 days. 3. Thiamine. 4. Folic acid. 5. Multivitamin. BRIEF HOSPITAL COURSE: The patient is a 42-year-old male, who presented to the hospital with increased swelling and pain to his left foot. His workup was consistent with left foot infection with osteomyelitis. He was placed on empiric antibiotics. He was seen by Dr. Cano. He underwent ray amputation of the left 5th metatarsal and toe on 27 September 2018. His discharge was delayed due to outpatient wound care/VAC setup. He appears stable for discharge. FINAL DIAGNOSES: 1. Left foot infection, status post amputation of the left 5th metatarsal and the toe. 2. Tobacco dependence. The patient was counseled. 3. Chronic alcohol use. The patient was counseled. 4. Schizophrenia. 5. Mild hyponatremia. 6. Metabolic acidosis. PLAN: Plan was discussed with the patient in detail. He stated understanding. Job ID: [id number]
== END 2018-10-01 19:30 | disposition home or self-care (01) | DRG 475 ==
LOC: ERS 18:45 → ONC 20:30
PROVIDERS: ADMIT Emergency Medicine; ATTEND Emergency Medicine
PROC: 0Y6N0ZF Detachment at Left Foot, Partial 5th Ray, Open Approach (ICD-10-PCS; principal; 2018-09-28)
DX: M86.8X7 Other osteomyelitis, ankle and foot (principal); E87.1 Hypo-osmolality and hyponatremia; E87.2 Acidosis; F17.210 Nicotine dependence, cigarettes, uncomplicated; F32.9 Major depressive disorder, single episode, unspecified; F25.9 Schizoaffective disorder, unspecified; Z72.89 Other problems related to lifestyle; L97.524 Non-pressure chronic ulcer of other part of left foot with necrosis of bone
CPT/HCPCS: 36415; 71045; 80048; 80053; 80202; 81003; 83036; 83605; 85025; 85652; 86140; 87040; 87086; 88305; 88311; 90471; 90715; 96365; 96375; J1100; J1885; J2001; J2250; J2405; J2543; J2704; J3010; J3370; J7050

== ENCOUNTER 2018-10-03 13:33 | Outpatient (CLI) | payer SELFPAY | END 2018-10-03 13:34 | disposition home or self-care (01) | LOC: WCC 13:33 | PROVIDERS: ATTEND Family Medicine | DX: L97.529 Non-pressure chronic ulcer of other part of left foot with unspecified severity (principal); F25.9 Schizoaffective disorder, unspecified; F17.200 Nicotine dependence, unspecified, uncomplicated; F10.99 Alcohol use, unspecified with unspecified alcohol-induced disorder | CPT/HCPCS: 97605 ==

== ENCOUNTER 2018-10-05 10:48 | Outpatient (CLI) | payer SELFPAY ==
[2018-10-05] MEDS ORDERED: Sodium Chloride 0.9% 15 ML NEB ONE (15:00)
== END 2018-10-05 10:49 | disposition home or self-care (01) ==
LOC: WCC 10:48
PROVIDERS: ATTEND Family Medicine
DX: T81.89XD Other complications of procedures, not elsewhere classified, subsequent encounter (principal); Z89.422 Acquired absence of other left toe(s)
CPT/HCPCS: 97605; A4218

== ENCOUNTER 2018-10-08 11:36 | Outpatient (CLI) | payer SELFPAY ==
[2018-10-08] MEDS ORDERED: Sodium Chloride 0.9% 15 ML NEB ONE (17:28)
== END 2018-10-08 11:37 | disposition home or self-care (01) ==
LOC: WCC 11:36
PROVIDERS: ATTEND Family Medicine
DX: T81.89XD Other complications of procedures, not elsewhere classified, subsequent encounter (principal); Z89.422 Acquired absence of other left toe(s)
CPT/HCPCS: 97605; A4218

== ENCOUNTER 2018-10-10 08:11 | Outpatient (CLI) | payer SELFPAY ==
--- NOTE | 2018-10-10 09:10 | HP ---
HISTORY OF PRESENT ILLNESS: Mr. David Salcedo is a very pleasant 42-year-old gentleman, who presents to the Wound Center for evaluation of a wound of the left lateral foot subsequent to ray amputation of the left 5th metatarsal and toe on 09/27/[address] Celio Cano. Negative pressure therapy was initiated intraoperatively. Upon discharge from [facility], the patient was referred to the Wound Center for assistance with dressing changes of the wound VAC. The patient was discharged to home on doxycycline and cefdinir. PAST MEDICAL HISTORY: Negative for diabetes mellitus, hypertension, or coronary artery disease. PAST SURGICAL HISTORY: Ray amputation of left 5th metatarsal and toe/wound VAC placement on 09/27/2018. MEDICATIONS: 1. Doxycycline. 2. Cefdinir. ALLERGIES: NO KNOWN DIAGNOSED ALLERGIES. SOCIAL HISTORY: Significant for tobacco use of half pack of cigarettes per day for 20 years. The patient admits to the consumption of 2 drinks per day also for the past 20 years. FAMILY HISTORY: Significant for diabetes mellitus. The patient's mother was diagnosed with diabetes mellitus. Family history is negative for coronary artery disease. PHYSICAL EXAMINATION: VITAL SIGNS: Temperature 97.5, pulse 101, and blood pressure 127/82. GENERAL: A 42-year-old gentleman, sitting on chair in examination room, in no acute distress. HEENT: Normocephalic and atraumatic. NECK: No nuchal rigidity. CHEST: Clear to auscultation. CV: Regular rate and rhythm. ABDOMEN: Soft. EXTREMITIES: A wound of the left lateral foot is present, which measures approximately 6.1 x 4.0 cm. Granulation tissue is present within the wound margins. Necrotic and nonviable tissue present within the wound margins was debrided with an excisional full-thickness debridement with the use of a curette. No purulent drainage is associated with the wound. No erythema of the skin surrounding the wound is present. No maceration of the skin of the periwound is noted. A dorsalis pedis pulse and a posterior tibial pulse are both palpable on the left. No significant edema of the left foot is present on exam today. NEURO: Grossly nonfocal. ASSESSMENT AND PLAN: Wound of left lateral foot subsequent to ray amputation of the left 5th metatarsal and toe on 09/27/2018, by Dr. Celio Cano. Negative pressure therapy was initiated intraoperatively and will be continued with dressing changes of the wound VAC here in the Wound Center. I will see Mr. Salcedo again in 2 weeks. As stated above, the patient was discharged to home on doxycycline and cefdinir, which he is taking as prescribed. Job ID: [id number]
[2018-10-10] MEDS ORDERED: Lidocaine 2% Jelly 30 GM TUBE ONE (18:00)
[2018-10-10] MEDS ORDERED: Sodium Chloride 0.9% 15 ML NEB ONE (18:00)
== END 2018-10-10 08:12 | disposition home or self-care (01) ==
LOC: WCC 08:11
PROVIDERS: ATTEND Family Medicine
DX: T81.89XD Other complications of procedures, not elsewhere classified, subsequent encounter (principal); Z89.422 Acquired absence of other left toe(s)
CPT/HCPCS: A4218

== ENCOUNTER 2018-10-12 10:53 | Outpatient (CLI) | payer SELFPAY ==
[~2018-10-12 10:53] MED LIST: Sodium Chloride 0.9% 15 ML NEB ONE
--- NOTE | 2018-10-12 12:17 | PRG ---
DATE OF SERVICE: 10/12/2018 SUBJECTIVE: David Salcedo is seen in Wound Care today. He is status post amputation of left fifth toe and metatarsal underlying neuropathic ulcer. His wound looks good granulating. Today, he reminds me that he has finished his antibiotics. He does not need any more antibiotics. We will discontinue these. He takes multivitamins [id number]. His wound is granulating healthy. Wound Care will continue the wound VAC. I will see him in the next 2 to 3 weeks. Job ID: [id number]
== END 2018-10-12 10:54 | disposition home or self-care (01) ==
LOC: WCC 10:53
PROVIDERS: ATTEND Family Medicine
DX: Z47.81 Encounter for orthopedic aftercare following surgical amputation (principal); Z89.422 Acquired absence of other left toe(s)
CPT/HCPCS: 97605; A4218

== ENCOUNTER 2018-10-16 11:04 | Outpatient (CLI) | payer SELFPAY | END 2018-10-16 11:05 | disposition home or self-care (01) | LOC: WCC 11:04 | PROVIDERS: ATTEND Family Medicine | DX: T81.89XD Other complications of procedures, not elsewhere classified, subsequent encounter (principal) | CPT/HCPCS: 97605; A4218 ==

== ENCOUNTER 2018-10-19 16:11 | Outpatient (CLI) | payer SELFPAY | END 2018-10-19 16:12 | disposition home or self-care (01) | LOC: WCC 16:11 | PROVIDERS: ATTEND Family Medicine | DX: T81.89XD Other complications of procedures, not elsewhere classified, subsequent encounter (principal) | CPT/HCPCS: 97605; A4218 ==

== ENCOUNTER 2018-10-23 15:04 | Outpatient (CLI) | payer SELFPAY | END 2018-10-23 15:05 | disposition home or self-care (01) | LOC: WCC 15:04 | PROVIDERS: ATTEND Family Medicine | DX: T81.89XD Other complications of procedures, not elsewhere classified, subsequent encounter (principal); Z89.422 Acquired absence of other left toe(s) | CPT/HCPCS: 97605; A4218 ==

== ENCOUNTER 2018-10-26 15:33 | Outpatient (CLI) | payer SELFPAY | END 2018-10-26 15:34 | disposition home or self-care (01) | LOC: WCC 15:33 | PROVIDERS: ATTEND Family Medicine | DX: T81.89XD Other complications of procedures, not elsewhere classified, subsequent encounter (principal) | CPT/HCPCS: 99211; A4218; G0463 ==

== ENCOUNTER 2018-11-08 11:33 | Outpatient (CLI) | payer SELFPAY ==
--- NOTE | 2018-11-08 12:24 | PRG ---
DATE OF SERVICE: 11/08/2018 HISTORY: Mr. David Salcedo is a very pleasant 42-year-old gentleman, who presents to the Wound Center for evaluation of a wound of the left lateral foot subsequent to ray amputation of the left fifth metatarsal and toe on 09/27/[address] Celio Cano. Negative pressure therapy was initiated intraoperatively. Upon discharge from [facility], the patient was referred to the Wound Center for assistance with dressing changes of the wound VAC. The patient was discharged to home on doxycycline and Cefdinir. The patient has completed a course of negative pressure therapy and is now performing wet-to-dry dressing changes for the wound of his left lateral foot as per Dr. Cano. PHYSICAL EXAMINATION: VITAL SIGNS: Temperature 97.9, pulse 80, blood pressure 128/81. EXTREMITIES: A wound of the left lateral foot is present, which measures approximately 4.7 x 2.2 cm. Granulation tissue was present within the wound margins. Necrotic and nonviable tissue present within the wound margins was debrided with an excisional full-thickness debridement with the use of a curette. No purulent drainage is associated with the wound. No erythema of the skin surrounding the wound is present. No maceration of the skin of the periwound is noted. A dorsalis pedis pulse is easily palpable on the left. No significant edema of the left foot is present on exam today. ASSESSMENT AND PLAN: Wound of left lateral foot subsequent to ray amputation of the left fifth metatarsal and toe on 09/27/[address] Celio Cano. Wet-to-dry dressing changes as per Dr. Cano will be continued. The patient will continue to perform his own dressing changes. I will see Mr. Salcedo again in 2 weeks. Job ID: [id number]
[2018-11-08] MEDS ORDERED: Lidocaine 2% 11 ML SYR ONE (19:56)
[2018-11-08] MEDS ORDERED: Sodium Chloride 0.9% 15 ML NEB ONE (19:56)
== END 2018-11-08 11:34 | disposition home or self-care (01) ==
LOC: WCC 11:33
PROVIDERS: ATTEND Family Medicine
DX: T81.89XD Other complications of procedures, not elsewhere classified, subsequent encounter (principal)
CPT/HCPCS: 11042; A4218

== ENCOUNTER 2018-11-22 15:24 | Outpatient (CLI) | payer SELFPAY ==
--- NOTE | 2018-11-22 13:59 | PRG ---
DATE OF SERVICE: 11/22/2018 HISTORY: Mr. David Salcedo is a very pleasant 42-year-old gentleman, who presents to the Wound Center for evaluation of a wound of the left lateral foot subsequent to right amputation of the left 5th metatarsal and toe on 09/27/[address] Celio Caon. Negative pressure therapy was initiated intraoperatively. Upon discharge from [facility], the patient was referred to the Wound Center for assistance with dressing changes of the wound VAC. The patient was discharged to home on doxycycline and cefdinir. The patient completed a course of negative pressure therapy and continues to perform wet-to-dry dressing changes for the wound of his left lateral foot as per Dr. Cano. PHYSICAL EXAMINATION: VITAL SIGNS: Temperature 98.0, pulse 82, blood pressure 129/90. EXTREMITIES: Wound of the left lateral foot is present which measures approximately 2.7 x 1.7 cm. The dimensions of the wound at the time of the patient's visit on 11/08/2018 were approximately 4.7 x 2.2 cm. Granulation tissue is present within the wound margins. Necrotic and nonviable tissue present within the wound margins was debrided with an excisional full-thickness debridement with the use of a curette. Callus desiccated tissue and undermining associated with the wound was eliminated with the use of scissors. No purulent drainage is associated with the wound. No erythema of the skin surrounding the wound is present. No maceration of the skin of the periwound is noted. A dorsalis pedis pulse and a posterior tibial pulse are both easily palpable on the left. No significant edema of the left foot is present on exam today. ASSESSMENT AND PLAN: Wound of left lateral foot subsequent to right amputation of the left fifth metatarsal and toe on 09/27/[address] Celio Cano. Wet-to-dry dressing changes as per Dr. Cano will be continued. The patient states he will continue to perform his own dressing changes on a daily basis after cleansing and irrigation. I will see Mr. Salcedo again in 2 weeks. Job ID: [id number]
[2018-11-22] MEDS ORDERED: Sodium Chloride 0.9% 15 ML NEB ONE (18:00)
[2018-11-22] MEDS ORDERED: Lidocaine 2% 11 ML SYR ONE (18:00)
== END 2018-11-22 15:25 | disposition home or self-care (01) ==
LOC: WCC 15:24
PROVIDERS: ATTEND Family Medicine
DX: Z47.81 Encounter for orthopedic aftercare following surgical amputation (principal); Z89.422 Acquired absence of other left toe(s)
CPT/HCPCS: A4218

== ENCOUNTER 2018-12-06 11:28 | Outpatient (CLI) | payer SELFPAY ==
[2018-12-06] MEDS ORDERED: Lidocaine 2% 11 ML SYR ONE (17:23)
[2018-12-06] MEDS ORDERED: Sodium Chloride 0.9% 15 ML NEB ONE (17:23)
--- NOTE | 2018-12-06 18:06 | PRG ---
DATE OF SERVICE: 12/06/2018 HISTORY: Mr. David Salcedo is a very pleasant 42-year-old gentleman, who presents to the wound center for evaluation of a wound of the left lateral foot subsequent to amputation of the left fifth metatarsal and toe on 09/27/[address] Celio Cano. Negative pressure therapy was initiated intraoperatively. Upon discharge from [facility], the patient was referred to the wound center for assistance with dressing changes of the wound VAC. The patient was discharged to home on doxycycline and cefdinir. The patient completed a course of negative pressure therapy and continues to perform wet-to-dry dressing changes for the wound of his left lateral foot as per Dr. Cano. PHYSICAL EXAMINATION: VITAL SIGNS: Temperature 98.1, pulse 92, respirations 17, and blood pressure 130/88. EXTREMITIES: A wound of the left lateral foot is present, which measures approximately 1.6 x 2.2 cm. The dimensions of the wound at the time of the patient's visit on 11/22/2018 were approximately 2.7 x 1.7 cm. Granulation tissue is present within the wound margins. Necrotic and nonviable tissue present within the wound margins was debrided with an excisional full-thickness debridement with the use of scissors. Callus, desiccated tissue, and undermining at the periphery of the wound were also eliminated with the use of scissors. No purulent drainage is associated with the wound. No erythema of the skin surrounding the wound is present. No maceration of the skin of the periwound is noted. No significant edema of the left foot is present on exam today. ASSESSMENT AND PLAN: Wound of left lateral foot subsequent to amputation of the left fifth metatarsal and toe on 09/27/[address] Celio Cano. Wet-to-dry dressing changes as per Dr. Cano will be continued. The patient states he will continue to perform his own dressing changes on a daily basis after cleansing and irrigation. I will see Mr. Salcedo again in 2 weeks. Job ID: [id number]
== END 2018-12-06 11:29 | disposition home or self-care (01) ==
LOC: WCC 11:28
PROVIDERS: ATTEND Family Medicine
DX: T81.89XD Other complications of procedures, not elsewhere classified, subsequent encounter (principal); Z89.422 Acquired absence of other left toe(s)
CPT/HCPCS: 11042; 87070; 87076; 87077; 87186; 87205; A4218

== ENCOUNTER 2019-01-03 11:28 | Outpatient (CLI) | payer SELFPAY ==
[2019-01-03] MEDS ORDERED: Lidocaine 2% PF 100 mg/5 ml Syringe ONE (15:00)
[2019-01-03] MEDS ORDERED: Sodium Chloride 0.9% 15 ML NEB ONE (15:00)
--- NOTE | 2019-01-03 17:50 | PRG ---
DATE OF SERVICE: 01/03/2019 HISTORY: Mr. David Salcedo is a very pleasant 43-year-old gentleman, who presents to the Wound Center for evaluation of a wound of the left lateral foot subsequent to amputation of the left fifth metatarsal and toe on 09/27/[address] Celio Cano. Negative pressure therapy was initiated intraoperatively. Upon discharge from [facility], the patient was referred to the Wound Center for assistance with dressing changes of the wound VAC. The patient was discharged to home on doxycycline and cefdinir. The patient completed a course of negative pressure therapy and states he is cleansing the wound with normal saline and then applying dry gauze to the wound of his left lateral foot. PHYSICAL EXAMINATION: VITAL SIGNS: Temperature 98.2, pulse 80, respirations 20, and blood pressure 151/98. EXTREMITIES: A wound of the left lateral foot is present, which measures approximately 3.0 x 2.2 cm. The dimensions of the wound at the time of the patient's visit on 12/06/2018 were approximately 1.6 x 2.2 cm. Granulation tissue is present within the wound margins. Necrotic and nonviable tissue present within the wound margins was debrided with an excisional full-thickness debridement with the use of scissors. Callus desiccated tissue and undermining at the periphery of the wound were also eliminated with the use of scissors. No purulent drainage is associated with the wound. No erythema of the skin surrounding the wound is present. No maceration of the skin of the periwound is noted. No significant edema of the left foot is present on exam today. No bone is exposed within the margins on today's exam. ASSESSMENT AND PLAN: Wound of left lateral foot subsequent to amputation of the left fifth metatarsal and toe on 09/27/[address] Celio Cano. Dressing changes of Xeroform followed by gauze will be initiated today. These dressing changes are to be performed on a daily basis after cleansing and irrigation. The patient states he will continue to perform his own dressing changes. I will see Mr. Salcedo again in 2 weeks. The patient states that he was unable to fill the prescription for ciprofloxacin given to him at the time of his last visit. He states that he misplaced the prescription. Tissue cultures obtained on 12/06/2018 revealed the growth of Pseudomonas aeruginosa sensitive to ciprofloxacin in addition to Citrobacter amalonaticus also sensitive to ciprofloxacin. The patient agrees to return to the Wound Center in 2 weeks. Job ID: [id number]
== END 2019-01-03 11:29 | disposition home or self-care (01) ==
LOC: WCC 11:28
PROVIDERS: ATTEND Family Medicine
DX: T81.89XD Other complications of procedures, not elsewhere classified, subsequent encounter (principal); Z89.422 Acquired absence of other left toe(s)
CPT/HCPCS: 11042; A4218; J2001

== ENCOUNTER 2019-01-24 12:24 | Outpatient (CLI) | payer SELFPAY ==
[2019-01-24] MEDS ORDERED: Lidocaine 2% PF 100 mg/5 ml Syringe ONE (15:00)
[2019-01-24] MEDS ORDERED: Sodium Chloride 0.9% 15 ML NEB ONE (15:00)
--- NOTE | 2019-01-24 16:12 | PRG ---
DATE OF SERVICE: 01/24/2019 SUBJECTIVE: Mr. David Salcedo is a very pleasant 43-year-old gentleman, who presents to the Wound Center for evaluation of a wound of the left lateral foot subsequent to amputation of the left fifth metatarsal and toe on 09/27/[address] Celio Cano. Negative pressure therapy was initiated intraoperatively. Upon discharge from [facility], the patient was referred to the Wound Center for assistance with dressing changes of the wound VAC. The patient was discharged to home on doxycycline and cefdinir. The patient completed a course of negative pressure therapy and is now performing dressing changes of Xeroform on a daily basis after cleansing and irrigation. OBJECTIVE: VITAL SIGNS: Temperature 98.1, pulse 87, respirations 17, and blood pressure 135/88. EXTREMITIES: An ulceration of the left lateral foot is present, which measures approximately 2.5 x 2.0 cm. The dimensions of the wound at the time of the patient's visit on 01/03/2019 were approximately 3.0 x 2.2 cm. Granulation tissue is present within the wound margins. Necrotic and nonviable tissue present within the wound margins were debrided with an excisional full-thickness debridement. Callus desiccated tissue and undermining at the periphery of the wound were eliminated with the use of scissors. No purulent drainage is associated with the wound. No erythema of the skin surrounding the wound is present. Maceration of the skin of the periwound is noted. The periwound also has a green discoloration. Edema of the left foot is present on exam today. No bone is exposed within the margins of the wound on exam today. ASSESSMENT AND PLAN: 1. Wound of left lateral foot subsequent to amputation of the left fifth metatarsal and toe on 09/27/[address] Celio Cano. Dressing changes of Xeroform followed by gauze will be continued on a daily basis after cleansing and irrigation. The patient states he will continue to perform his own dressing changes. The patient has been asked to return to the Wound Center in 1 week. At this time, the wound will be viewed by Dr. Cano if possible. Tissue cultures obtained on 12/06/2018 revealed a growth of Pseudomonas aeruginosa sensitive to ciprofloxacin, in addition to Citrobacter amalonaticus, also sensitive to ciprofloxacin. As the patient was placed on a course of ciprofloxacin in view of the green discoloration of the periwound, the patient has been given another prescription for ciprofloxacin 500 mg #20 one p.o. b.i.d. x10 days. The patient has also been given a work release for the next 2 weeks. In addition, Mr. Salcedo has been asked to discontinue the use of all tobacco. 2. Tobacco use. As stated above, the patient has been asked to discontinue all use of tobacco. Job ID: [id number]
== END 2019-01-24 12:25 | disposition home or self-care (01) ==
LOC: WCC 12:24
PROVIDERS: ATTEND Family Medicine
DX: T81.89XD Other complications of procedures, not elsewhere classified, subsequent encounter (principal); Z72.0 Tobacco use
CPT/HCPCS: 11042; A4218; J2001

== ENCOUNTER 2019-01-31 11:01 | Outpatient (CLI) | payer SELFPAY ==
--- NOTE | 2019-01-31 10:53 | PRG ---
DATE OF SERVICE: 01/31/2019 HISTORY: Mr. David Salcedo is a very pleasant 43-year-old gentleman, who presents to the Wound Center for evaluation of a wound of the left lateral foot subsequent to amputation of the left fifth metatarsal and toe on 09/27/[address] Celio Cano. Negative pressure therapy was initiated intraoperatively. Upon discharge from [facility], the patient was referred to the Wound Center for assistance with dressing changes of the wound VAC. The patient was discharged to home on doxycycline and cefdinir. The patient completed a course of negative pressure therapy and is presently performing dressing changes of Xeroform on a daily basis after cleansing and irrigation. PHYSICAL EXAMINATION: VITAL SIGNS: Temperature 98.3, pulse 82, respirations 17, blood pressure 132/96. EXTREMITIES: An ulceration of the left lateral foot is present which measures approximately 2.0 x 2.0 cm. The dimensions of the wound at the time of the patient's visit on 01/24/2019 were approximately 2.5 x 2.0 cm. Granulation tissue is present within the wound margins. Necrotic and nonviable tissue present within the wound margins was debrided with an excisional full-thickness debridement with the use of scissors and a curette. Callus desiccated tissue and undermining at the periphery of the wound were eliminated with the use of scissors. No purulent drainage is associated with the wound. No erythema of the skin surrounding the wound is present. No maceration of the skin of the periwound is noted. No significant edema of the left foot is present on exam today. No bone is exposed within the wound margins on today's exam. ASSESSMENT AND PLAN: 1. Wound of left lateral foot subsequent to amputation of the left fifth metatarsal and toe on 09/27/[address] Celio Cano. Dressing changes of Xeroform followed by gauze will be continued on a daily basis after cleansing and irrigation. The patient states he will continue to perform his own dressing changes. I will see Mr. Salcedo again in 1 week. Again, Mr. Salcedo has been asked to discontinue the use of all tobacco. 2. Tobacco use. The patient states that he is still smoking. Job ID: [id number]
[2019-01-31] MEDS ORDERED: Sodium Chloride 0.9% 15 ML NEB ONE (11:11)
== END 2019-01-31 11:02 | disposition home or self-care (01) ==
LOC: WCC 11:01
PROVIDERS: ATTEND Family Medicine
DX: T81.89XD Other complications of procedures, not elsewhere classified, subsequent encounter (principal); Z89.422 Acquired absence of other left toe(s); Z72.0 Tobacco use
CPT/HCPCS: 11042; A4218

== ENCOUNTER 2019-02-25 11:51 | Outpatient (CLI) | payer SELFPAY ==
--- NOTE | 2019-02-25 11:36 | PRG ---
DATE OF SERVICE: 02/25/2019 HISTORY: Mr. David Salcedo is a very pleasant 43-year-old gentleman, who presents to the Wound Center for evaluation of a wound of the left lateral foot subsequent to amputation of the left fifth metatarsal and toe on 09/27/[address] Celio Cano. Negative pressure therapy was initiated intraoperatively. Upon discharge from [facility], the patient was referred to the Wound Center for assistance with dressing changes of the wound VAC. The patient was discharged to home on doxycycline and cefdinir. The patient completed a course of negative pressure therapy and is currently performing dressing changes of Xeroform gauze on a daily basis after cleansing and irrigation. PHYSICAL EXAMINATION: VITAL SIGNS: Temperature 98.1, pulse 74, blood pressure 126/75. EXTREMITIES: An ulceration of the left lateral foot is present, which measures approximately 1.4 x 1.6 cm. The dimensions of the wound at the time of the patient's visit on 01/31/2019 were approximately 2.0 x 2.0 cm. Granulation tissue is present within the wound margins. Necrotic and nonviable tissue present within the wound margins was debrided with an excisional full-thickness debridement with the use of a curette. Callus desiccated tissue and undermining at the periphery of the wound were eliminated with the use of scissors. No purulent drainage is associated with the wound. No erythema of the skin surrounding the wound is present. Maceration of the skin of the periwound is noted. A dorsalis pedis pulse is easily palpable on the left. No significant edema of the left foot is present on exam today. Post debridement measurements were approximately 1.5 x 1.7 cm. ASSESSMENT AND PLAN: 1. Wound of left lateral foot subsequent to amputation of the left fifth metatarsal and toe on 09/27/[address] Celio Cano. Dressing changes of Xeroform followed by gauze will be continued on a daily basis after cleansing and irrigation. The patient states he will continue to perform his own dressing changes. I will see Mr. Salcedo again in 2 weeks. The patient has also been instructed to pat dry the periwound thoroughly before applying the Xeroform gauze to his wound at the time of dressing changes. In addition, the patient has been given a prescription for an offloading boot. 2. Tobacco use. Job ID: [id number]
[2019-02-25] MEDS ORDERED: Sodium Chloride 0.9% 15 ML NEB ONE (18:00)
== END 2019-02-25 11:52 | disposition home or self-care (01) ==
LOC: WCC 11:51
PROVIDERS: ATTEND Family Medicine
DX: T87.89 Other complications of amputation stump (principal); Z72.0 Tobacco use
CPT/HCPCS: A4218

== ENCOUNTER 2019-03-11 11:21 | Outpatient (CLI) | payer SELFPAY ==
[~2019-03-11 11:21] MED LIST changes: +Lidocaine 2% PF 100 mg/5 ml Syringe ONE
--- NOTE | 2019-03-11 13:22 | PRG ---
DATE OF SERVICE: 03/11/2019 HISTORY: Mr. David Salcedo is a very pleasant 43-year-old gentleman, who presents to the Wound Center for evaluation of a wound of the left lateral foot subsequent to amputation of the left 5th metatarsal and toe on 09/27/[address] Celio Cano. Negative pressure therapy was initiated intraoperatively. Upon discharge from [facility], the patient was referred to the Wound Center for assistance with dressing changes of the wound VAC. The patient was discharged to home on doxycycline and cefdinir. The patient completed a course of negative pressure therapy and is presently performing dressing changes of Xeroform gauze on a daily basis after cleansing and irrigation. The patient also states that he is not working and therefore not on his feet for a significant portion of the day. PHYSICAL EXAMINATION: VITAL SIGNS: Temperature 98.2, pulse 74, respirations 19, blood pressure 130/68. EXTREMITIES: An ulceration of the left lateral foot is present which measures approximately 0.7 x 0.9 cm. The dimensions of the wound at the time of the patient's visit on 02/25/2019 were approximately 1.4 x 1.6 cm. Granulation tissue is present within the wound margins. Necrotic and nonviable tissue present within the wound margins was debrided with an excisional full-thickness debridement with the use of a curette. Callus desiccated tissue and undermining at the periphery of the wound were eliminated with the use of scissors. No purulent drainage is associated with the wound. No erythema of the skin surrounding the wound is present. No maceration of the skin of the periwound is noted. No significant edema of the left foot is present on exam today. Post debridement measurements were approximately 1.4 x 1.0 cm. ASSESSMENT AND PLAN: 1. Wound of left lateral foot subsequent to amputation of the left 5th metatarsal and toe on 09/27/[address] Celio Cano. Dressing changes of Xeroform followed by gauze will be continued on a daily basis after cleansing and irrigation. The patient states he will continue to perform his own dressing changes. I will see Mr. Salcedo again in 2 weeks. 2. Tobacco use. Job ID: [id number]
== END 2019-03-11 11:22 | disposition home or self-care (01) ==
LOC: WCC 11:21
PROVIDERS: ATTEND Family Medicine
DX: T81.89XD Other complications of procedures, not elsewhere classified, subsequent encounter (principal); Z72.0 Tobacco use; Z89.422 Acquired absence of other left toe(s)
CPT/HCPCS: A4218; J2001

== ENCOUNTER 2019-03-25 14:21 | Outpatient (CLI) | payer SELFPAY ==
[2019-03-25] MEDS ORDERED: Sodium Chloride 0.9% 15 ML NEB ONE (15:00)
[2019-03-25] MEDS ORDERED: Lidocaine 2% PF 100 mg/5 ml Syringe ONE (15:00)
--- NOTE | 2019-03-25 17:26 | PRG ---
DATE OF SERVICE: 03/25/2019 HISTORY: Mr. David Salcedo is a very pleasant 43-year-old gentleman, who presents to the Wound Center for evaluation of a wound of the left lateral foot subsequent to amputation of the left fifth metatarsal and toe on 09/27/2018, by Dr. Celio Cano. Negative pressure therapy was initiated intraoperatively. Upon discharge from [facility], the patient was referred to the Wound Center for assistance with dressing changes of the wound VAC. The patient was discharged to home on doxycycline and cefdinir. The patient completed a course of negative pressure therapy and is currently performing dressing changes of Xeroform gauze on a daily basis after cleansing and irrigation. Again, the patient states that he is not working, and therefore, not on his feet for a significant portion of the day. PHYSICAL EXAMINATION: VITAL SIGNS: Temperature 98.2, pulse 75, respirations 18, blood pressure 118/70. EXTREMITIES: An ulceration of the left lateral foot is present, which measures approximately 0.6 x 0.3 cm. The dimensions of the wound at the time of the patient's visit on 03/11/2019, were approximately 0.7 x 0.9 cm. Granulation tissue is present within the wound margins. Necrotic and nonviable tissue present within the wound margins was debrided with an excisional full-thickness debridement with the use of a curette. Callus desiccated tissue and undermining at the periphery of the wound were eliminated with the use of scissors. No purulent drainage is associated with the wound. No erythema of the skin surrounding the wound is present. No maceration of the skin of the periwound is noted. No significant edema of the left foot is present on exam today. Postdebridement measurements were approximately 1.3 x 0.8 cm. ASSESSMENT AND PLAN: 1. Wound of left lateral foot subsequent to amputation of the left fifth metatarsal and toe on 09/27/2018, by Dr. Celio Cano. Dressing changes of Medihoney alginate followed by gauze will be initiated today. These dressing changes are to be performed on a daily basis after cleansing and irrigation. The patient states he will continue to perform his own dressing changes. Dressing changes of Xeroform will be discontinued. I will see Mr. Salcedo again in 2 weeks. 2. Tobacco use. Job ID: [id number]
== END 2019-03-25 14:22 | disposition home or self-care (01) ==
LOC: WCC 14:21
PROVIDERS: ATTEND Family Medicine
DX: T81.89XD Other complications of procedures, not elsewhere classified, subsequent encounter (principal); Z72.0 Tobacco use; Z89.422 Acquired absence of other left toe(s)
CPT/HCPCS: A4218; J2001

== ENCOUNTER 2019-04-18 11:40 | Outpatient (CLI) | payer SELFPAY ==
[~2019-04-18 11:40] MED LIST changes: -Lidocaine 2% PF 100 mg/5 ml Syringe ONE
--- NOTE | 2019-04-18 17:20 | PRG ---
DATE OF SERVICE: 04/18/2019 HISTORY: Mr. David Salcedo is a very pleasant 43-year-old gentleman who presents to the Wound Center for evaluation of a wound of the left lateral foot subsequent to amputation of the left fifth metatarsal and toe on 09/27/[address] Celio Cano. Negative pressure therapy was initiated intraoperatively. Upon discharge from [facility], the patient was referred to the Wound Center for assistance with dressing changes of the wound VAC. The patient was discharged to home on doxycycline and cefdinir. The patient completed a course of negative pressure therapy and is presently performing dressing changes of Medihoney alginate followed by gauze on a daily basis after cleansing and irrigation. Again, the patient states that he is not working and therefore not on his feet for a significant portion of the day. PHYSICAL EXAMINATION: VITAL SIGNS: Temperature 98.3, pulse 77, respirations 18, and blood pressure 108/66. EXTREMITIES: An ulceration of the left lateral foot is present, which measures approximately 0.4 x 0.8 cm. The dimensions of the wound at the time of the patient's visit on 03/25/2019 were approximately 0.6 x 0.3 cm. Granulation tissue is present within the wound margins. Necrotic and nonviable tissue present within the wound margins was debrided with an excisional full-thickness debridement with the use of a curette. Callus desiccated tissue and undermining at the periphery of the wound were eliminated with the use of scissors. No purulent drainage is associated with the wound. No erythema of the skin surrounding the wound is present. No maceration of the skin of the periwound is noted. No significant edema of the left foot is present on exam today. ASSESSMENT AND PLAN: 1. Wound of left lateral foot subsequent to amputation of the left fifth metatarsal and toe on 09/27/[address] Celio Cano. Dressing changes of Medihoney alginate followed by gauze will be continued on a daily basis after cleansing and irrigation. The patient will continue to perform his own dressing changes. I have asked the patient to return to clinic in 2 weeks. 2. Tobacco use. Again, the patient has been encouraged to discontinue the use of all tobacco. Job ID: [id number]
== END 2019-04-18 11:41 | disposition home or self-care (01) ==
LOC: WCC 11:40
PROVIDERS: ATTEND Family Medicine
DX: S91.302D Unspecified open wound, left foot, subsequent encounter (principal); Z72.0 Tobacco use
CPT/HCPCS: 11042; A4218

== ENCOUNTER 2019-05-02 11:43 | Outpatient (CLI) | payer SELFPAY ==
--- NOTE | 2019-05-02 17:37 | PRG ---
DATE OF SERVICE: 05/02/2019 HISTORY: Mr. David Salcedo is a very pleasant 43-year-old gentleman, who presents to the Wound Center for evaluation of a wound of the left lateral foot subsequent to amputation of the left fifth metatarsal and toe on 09/27/[address] Celio Cano. Negative pressure therapy was initiated intraoperatively. Upon discharge from [facility], the patient was referred to the Wound Center for assistance with dressing changes of the wound VAC. The patient was discharged to home on doxycycline and cefdinir. The patient completed a course of negative pressure therapy and is currently performing dressing changes of Medihoney alginate followed by gauze on a daily basis after cleansing and irrigation. Again, the patient states that he is not working and, therefore, not on his feet for a significant portion of the day. PHYSICAL EXAMINATION: VITAL SIGNS: Temperature 98.1, pulse 79, respirations 19, and blood pressure 107/68. EXTREMITIES: An ulceration of the left lateral foot is present, which measures approximately 0.5 x 0.3 cm. The dimensions of the wound at the time of the patient's visit on 04/18/2019 were approximately 0.4 x 0.8 cm. Granulation tissue is present within the wound margins. Necrotic and nonviable tissue present within the wound margins was debrided with an excisional full-thickness debridement with the use of a curette. Callus desiccated tissue and undermining at the periphery of the wound were eliminated with the use of scissors. No purulent drainage is associated with the wound. No erythema of the skin surrounding the wound is present. No maceration of the skin of the periwound is noted. No significant edema of the left foot is present on exam today. ASSESSMENT AND PLAN: 1. Wound of left lateral foot subsequent to amputation of the left fifth metatarsal and toe on 09/27/[address] Celio aCno. Dressing changes of Medihoney alginate followed by gauze will be continued on a daily basis after cleansing and irrigation. The patient will continue to perform his own dressing changes. I have asked the patient to return to clinic in 2 weeks from today. 2. Tobacco use. Again, the patient has been encouraged to discontinue the use of all tobacco. Job ID: [id number]
== END 2019-05-02 11:44 | disposition home or self-care (01) ==
LOC: WCC 11:43
PROVIDERS: ATTEND Family Medicine
DX: T81.89XD Other complications of procedures, not elsewhere classified, subsequent encounter (principal); Z89.422 Acquired absence of other left toe(s); Z72.0 Tobacco use
CPT/HCPCS: A4218

== ENCOUNTER 2019-05-16 11:27 | Outpatient (CLI) | payer SELFPAY ==
--- NOTE | 2019-05-16 12:38 | PRG ---
DATE OF SERVICE: 05/16/2019 HISTORY: Mr. David Salcedo is a very pleasant 43-year-old gentleman, who presents to the Wound Center for evaluation of a wound of the left lateral foot subsequent to amputation of the left fifth metatarsal and toe on 09/27/[address] Celio Cano. Negative pressure therapy was initiated intraoperatively upon discharge from [facility]. The patient was referred to the Wound Center for assistance with dressing changes of the wound VAC. The patient was discharged to home on doxycycline and cefdinir. The patient completed a course of negative pressure therapy and is presently performing dressing changes of Medihoney alginate followed by gauze on a daily basis after cleansing and irrigation. Again, the patient states that he is not working and therefore not on his feet for a significant portion of the day. PHYSICAL EXAMINATION: VITAL SIGNS: Temperature 98.3, pulse 84, respirations 20, blood pressure 109/69. EXTREMITIES: An ulceration of the left lateral foot is present which measures approximately 0.4 x 0.6 cm. The dimensions of the wound at the time of the patient's visit on 05/02/2019 were approximately 0.5 x 0.3 cm. Granulation tissue is present within the wound margins. Necrotic and nonviable tissue present within the wound margins was debrided with an excisional full-thickness debridement with the use of a curette. Callus desiccated tissue and undermining at the periphery of the wound were eliminated with the use of scissors. No purulent drainage is associated with the wound. No erythema of the skin surrounding the wound is present. No maceration of the skin of the periwound is noted. No significant edema of the left foot is present on exam today. ASSESSMENT AND PLAN: 1. Wound of left lateral foot subsequent to amputation of the left fifth metatarsal and toe on 09/27/[address] Celio Cano. Dressing changes of Medihoney alginate followed by gauze will be continued on a daily basis after cleansing and irrigation. The patient will continue to perform his own dressing changes. I will see Mr. Salcedo again in 2 weeks. 2. Tobacco use. The patient has been encouraged to discontinue the use of all tobacco. Job ID: [id number]
== END 2019-05-16 11:28 | disposition home or self-care (01) ==
LOC: WCC 11:27
PROVIDERS: ATTEND Family Medicine
DX: Z47.81 Encounter for orthopedic aftercare following surgical amputation (principal); Z72.0 Tobacco use; Z89.422 Acquired absence of other left toe(s)
CPT/HCPCS: A4218

== ENCOUNTER 2019-06-05 11:53 | Outpatient (CLI) | payer SELFPAY ==
--- NOTE | 2019-06-05 14:01 | PRG ---
DATE OF SERVICE: 06/05/2019 SUBJECTIVE: Mr. David Salcedo is a very pleasant 43-year-old gentleman, who presents to the Wound Center for evaluation of a wound of the left lateral foot subsequent to amputation of the left fifth metatarsal and toe on 09/27/[address] Celio Cano. Negative pressure therapy was initiated intraoperatively. Upon discharge from [facility], the patient was referred to the Wound Center for assistance with dressing changes of the wound VAC. The patient was discharged to home on doxycycline and cefdinir. The patient completed a course of negative pressure therapy and is currently performing dressing changes of Medihoney Alginate followed by gauze on a daily basis after cleansing and irrigation. Again, the patient reports that he is not working and therefore not on his feet for a significant portion of the day. OBJECTIVE: VITAL SIGNS: Temperature 97.7, pulse 81, respirations 18, blood pressure 114/64. EXTREMITIES: An ulceration of the left lateral foot is present which measures approximately 0.5 x 0.5 cm. The dimensions of the wound at the time of the patient's visit on 05/16/2019 were approximately 0.4 x 0.6 cm. Granulation tissue is present within the wound margins. Necrotic and nonviable tissue present within the wound margins was debrided with an excisional full-thickness debridement with the use of a curette. Callus desiccated tissue and undermining at the periphery of the wound were eliminated with the use of scissors. No purulent drainage is associated with the wound. No erythema of the skin surrounding the wound is present. No maceration of the skin of the periwound is noted. No significant edema of the left foot is present on exam today. ASSESSMENT AND PLAN: 1. Wound of left lateral foot subsequent to amputation of the left fifth metatarsal and toe on 09/27/[address] Celio Cano. Dressing changes of Medihoney Alginate followed by gauze will be continued on a daily basis after cleansing and irrigation. The patient will continue to perform his own dressing changes. I have asked the patient to return to clinic in 2 weeks. 2. Tobacco use. The patient again has been encouraged to discontinue the use of all tobacco. Job ID: [id number]
== END 2019-06-05 11:54 | disposition home or self-care (01) ==
LOC: WCC 11:53
PROVIDERS: ATTEND Family Medicine
DX: T81.89XD Other complications of procedures, not elsewhere classified, subsequent encounter (principal); Z89.422 Acquired absence of other left toe(s); Z72.0 Tobacco use
CPT/HCPCS: 11042

== ENCOUNTER 2019-06-26 11:46 | Outpatient (CLI) | payer SELFPAY ==
--- NOTE | 2019-06-26 16:18 | PRG ---
DATE OF SERVICE: 06/26/2019 HISTORY: Mr. David Salcedo is a very pleasant 43-year-old gentleman who presents to the Wound Center for evaluation of a wound of the left lateral foot subsequent to amputation of the left fifth metatarsal and toe on 09/27/[address] Celio Cano. Negative pressure therapy was initiated intraoperatively. Upon discharge from [facility], the patient was referred to the Wound Center for assistance with dressing changes of the wound VAC. The patient was discharged to home on doxycycline and cefdinir. The patient completed a course of negative pressure therapy and is presently performing dressing changes of Medihoney alginate on a daily basis after cleansing and irrigation. PHYSICAL EXAMINATION: VITAL SIGNS: Temperature 98.1, pulse 88, respirations 19, and blood pressure 105/76. EXTREMITIES: The ulceration of the left lateral foot has healed completely. Callus associated with the wound was debrided with an excisional partial-thickness debridement with the use of scissors. No significant edema of the left foot is present on exam today. ASSESSMENT AND PLAN: 1. Wound of left lateral foot subsequent to amputation of the left fifth metatarsal and toe on 09/27/[address] Celio Cano. As stated above, the wound has healed completely and callus associated with the wound was debrided with an excisional partial-thickness debridement with the use of scissors. I will see Mr. Salcedo again in 1 week. At this time, he will be seen by the director of automation. The patient has been asked to keep his newly-healed wound clean, dry, and covered until his followup visit in 1 week. The patient understands and is in agreement with the preceding treatment plan. 2. Tobacco use. Job ID: [id number]
== END 2019-06-26 11:47 | disposition home or self-care (01) ==
LOC: WCC 11:46
PROVIDERS: ATTEND Family Medicine
DX: T81.89XD Other complications of procedures, not elsewhere classified, subsequent encounter (principal); Z72.0 Tobacco use; Z89.022 Acquired absence of left finger(s)

== ENCOUNTER 2019-06-27 10:57 | Outpatient (CLI) | payer OTHER ==
--- NOTE | 2019-06-27 12:11 | RAD ---
EXAM: Lumbar spine 2 views: HISTORY: Disability evaluation COMPARISON: 05/27/2009 FINDINGS: No evidence for acute fracture or dislocation involving the visualized spine. There are disc osteophytosis and facet arthrosis changes. No evidence for malalignment. No evidence for a bone lesion. IMPRESSION: Spondylosis. No significant acute process. Overall stable exam.
--- NOTE | 2019-06-27 12:22 | RAD ---
Exam: Left knee 2 views: HISTORY: Disability exam COMPARISON: None FINDINGS: Incidental superior lateral bipartite patella. No evidence for fracture, dislocation, or other significant acute osseous abnormality. IMPRESSION: No significant acute process.
== END 2019-06-27 10:58 | disposition home or self-care (01) ==
LOC: BICRAD 10:57 → RAD 10:58
PROVIDERS: ATTEND Internal Medicine
DX: Z02.71 Encounter for disability determination (principal); M47.816 Spondylosis without myelopathy or radiculopathy, lumbar region
CPT/HCPCS: 72100

== ENCOUNTER 2019-07-03 13:19 | Outpatient (CLI) | payer SELFPAY ==
--- NOTE | 2019-07-03 11:03 | PRG ---
DATE OF SERVICE: 07/03/2019 HISTORY: Mr. David Salcedo is a very pleasant 43-year-old gentleman, who presents to the [facility] for evaluation of a wound of the left lateral foot subsequent to amputation of the left fifth metatarsal and toe on by Dr. Celio Cano. Negative pressure therapy was initiated intraoperatively. Upon discharge from [facility], the patient was referred to the Wound Center for assistance with dressing changes of the wound VAC. The patient was discharged to home on doxycycline and cefdinir. The patient completed a course of negative pressure therapy and most recently performed dressing changes of Medihoney alginate on a daily basis after cleansing and irrigation. At the time of the patient's last visit, the ulceration was noted to have healed completely. The patient has been keeping his newly healed wound clean, dry, and covered as previously instructed. PHYSICAL EXAMINATION: VITAL SIGNS: Temperature 97.7, pulse 77, respirations 16, and blood pressure 111/74. EXTREMITIES: The ulceration of the left lateral foot has healed completely and remains healed. Callus associated with the wound was debrided with an excisional partial thickness debridement with the use of scissors. No significant edema of the left foot is present on exam today. ASSESSMENT AND PLAN: 1. Wound of left lateral foot subsequent to amputation of the left fifth metatarsal and toe on by Dr. Celio Cano. As stated above, the wound has healed completely and remains healed. The callus associated with the wound was debrided with an excisional partial thickness debridement with the use of scissors. I will see Mr. Salcedo again on 07/31/2019. At this time, he will be seen by the cardiology clinical nurse specialist. The patient has also been seen by the cardiology clinical nurse specialist today. 2. Tobacco use. Job ID: [id number]
== END 2019-07-03 13:20 | disposition home or self-care (01) ==
LOC: WCC 13:19
PROVIDERS: ATTEND Family Medicine
DX: T81.89XD Other complications of procedures, not elsewhere classified, subsequent encounter (principal); Z72.0 Tobacco use; Z89.412 Acquired absence of left great toe; Z89.422 Acquired absence of other left toe(s)
CPT/HCPCS: 97597; A4218

== ENCOUNTER 2019-07-08 13:30 | Emergency (ER) | payer SELFPAY | END 2019-07-08 15:35 | disposition home or self-care (01) | LOC: ERS 13:30 | DX: K05.10 Chronic gingivitis, plaque induced (principal); K02.9 Dental caries, unspecified; F17.210 Nicotine dependence, cigarettes, uncomplicated | CPT/HCPCS: 99282 ==

== ENCOUNTER 2019-07-31 15:45 | Outpatient (CLI) | payer SELFPAY ==
--- NOTE | 2019-07-31 11:00 | PRG ---
DATE OF SERVICE: 07/31/2019 HISTORY: Mr. 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 Celio Cano. Negative pressure therapy was initiated intraoperatively. Upon discharge from [facility], the patient was referred to the Wound Center for assistance with dressing changes of the wound VAC. The patient was discharged to home on doxycycline and cefdinir. The patient completed a course of negative pressure therapy and most recently performed dressing changes of Medihoney Alginate on a daily basis after cleansing and irrigation. At the time of the patient's last 2 visits, the ulceration was noted to have healed completely and to have remain healed. PHYSICAL EXAMINATION: VITAL SIGNS: Temperature 97.9, pulse 80, respirations 19, and blood pressure 109/70. EXTREMITIES: The ulceration of the left lateral foot has healed completely and remains healed. Callus associated with the wound was debrided with an excisional partial thickness debridement with the use of scissors. No significant edema of the left foot is present on exam today. ASSESSMENT AND PLAN: 1. 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 Celio Cano. As stated above, the wound has healed completely and remains healed. The callus associated with the wound was debrided with an excisional partial thickness debridement with the use of scissors. The patient has been seen by the malted milk masher today and provided with inserts. Mr. Salcedo will be discharged from clinic with followup on a p.r.n. basis. 2. History of tobacco use. Job ID: [id number]
== END 2019-07-31 15:46 | disposition home or self-care (01) ==
LOC: WCC 15:45
PROVIDERS: ATTEND Family Medicine
DX: T81.89XD Other complications of procedures, not elsewhere classified, subsequent encounter (principal); Z89.422 Acquired absence of other left toe(s)
CPT/HCPCS: A4218

== ENCOUNTER 2019-09-10 09:03 | Emergency (ER) | payer SELFPAY | END 2019-09-10 10:53 | disposition home or self-care (01) | LOC: ERS 09:03 | DX: M25.511 Pain in right shoulder (principal); M25.512 Pain in left shoulder; K08.89 Other specified disorders of teeth and supporting structures; F32.9 Major depressive disorder, single episode, unspecified; F25.9 Schizoaffective disorder, unspecified; F17.210 Nicotine dependence, cigarettes, uncomplicated; Z79.899 Other long term (current) drug therapy | CPT/HCPCS: 99281 ==

== ENCOUNTER 2022-10-17 09:36 | Inpatient (IN) | payer MEDICARE, SELFPAY ==
[2022-10-17 10:12] LABS: #Lymphocytes 0.8 thou/uL (1.20-3.40); #Monocytes 0.5 thou/uL (0.11-0.59); #Neutrophils 4.5 thou/uL (1.40-6.50); %Eosinophils 0.1 % (0.0-10.0); %Lymphocytes 13.1 % (21.0-51.0); %Neutrophils 78.8 % (42.0-75.0); Hemoglobin 5.2 g/dL (14.0-18.0); Mean Corpuscular HGB CONC 33.9 g/dL (32.0-36.0); Mean Corpuscular Hemoglobin 27.3 pg (27.0-31.0); Mean Corpuscular Volume 80.6 fl (78.0-98.0); Mean Platelet Volume 6.9 fL (7.4-10.4); Platelet Count 378 10x3/uL (130-400); RBC Distribution Width 18.8 % (11.5-14.5); Red Blood Cell (RBC) Count 1.89 mill/uL (4.70-6.10); White Blood Cell (WBC) Count 5.7 10x3/uL (4.8-10.8)
[2022-10-17 10:32] LABS: ALT (SGPT) 7 U/L (8-55); AST (SGOT) 25 U/L (5-34); Albumin 2.6 g/dL (3.5-5.0); Alkaline Phosphatase 86 U/L (40-110); Anion Gap 15 mmol/L (10-20); BUN (Urea Nitrogen) 5 mg/dL (8.9-20.6); Bilirubin, Total 2.6 mg/dL (0.2-1.2); Calc. Creatinine Clearance 0 mL/min (70-130); Calcium 7.4 mg/dL (7.8-10.44); Carbon Dioxide 33 mmol/L (22-29); Chloride 82 mmol/L (98-107); Estimated GFR 113; Globulin 3.8 g/dL (2.4-3.5); Glucose 139 mg/dL (70-105); Lipase 13 U/L (8-78); Protein, Total 6.4 g/dL (6.0-8.3); Sodium 128 mmol/L (136-145)
[2022-10-17 10:42] LABS: Potassium 1.7 mmol/L (3.5-5.1)
[2022-10-17 10:48] LABS: CKMB 3.6 ng/mL (0-6.6)
[2022-10-17] MEDS ORDERED: Pantoprazole 40 MG VIAL ONE (11:21)
[2022-10-17] MEDS ORDERED: Potassium Chloride 20 MEQ TAB ONE (11:21)
[2022-10-17] MEDS ORDERED: Potassium Chloride 20 MEQ/100 ML PREMIX BAG ONE (11:21)
[2022-10-17 12:11] LABS: Hypochromia SLIGHT = 6-15 cells (100X) (0-5/hpf); Polychromasia SLIGHT = 2-3 cells (100X) (0-2/hpf)
[2022-10-17 12:59] LABS: Troponin I 0.027 ng/mL (< 0.028)
[2022-10-17 13:58] VITALS: BMI 29.9
[2022-10-17] MEDS ORDERED: Ondansetron PF 4 MG/2 ML Vial IVP PRN (14:15)
[2022-10-17] MEDS ORDERED: Acetaminophen 325 MG TAB PO PRN (14:15)
[2022-10-17] MEDS ORDERED: Ondansetron ODT 4 MG TAB SL PRN (14:15)
[2022-10-17] MEDS ORDERED: Magnesium 2 GM/50 ML(in water) 2 GM in Premix Bag 1 BAG IVPB SCH (14:15)
[2022-10-17] MEDS ORDERED: Lorazepam 1 MG TAB PO PRN (14:27)
[2022-10-17] MEDS ORDERED: Electrolyte Replacement Protocol 1 EACH FS SCH (14:30)
[2022-10-17 14:52] LABS: Hemoglobin 5.6 g/dL (14.0-18.0)
[2022-10-17 14:59] LABS: Anion Gap 14 mmol/L (10-20); BUN (Urea Nitrogen) 4 mg/dL (8.9-20.6); Calc. Creatinine Clearance 188 mL/min (70-130); Calcium 7.3 mg/dL (7.8-10.44); Carbon Dioxide 34 mmol/L (22-29); Chloride 83 mmol/L (98-107); Estimated GFR 115; Glucose 109 mg/dL (70-105); Magnesium 1.5 mg/dL (1.6-2.6); Sodium 129 mmol/L (136-145)
[2022-10-17 15:17] LABS: Troponin I 0.024 ng/mL (< 0.028)
[2022-10-17 15:18] LABS: Potassium 1.7 mmol/L (3.5-5.1)
[2022-10-17] MEDS: Thiamine HCl 200 MG/2 ML VIAL SLOW IVP SCH (15:37)
[2022-10-17] MEDS: Potassium Chloride 20 MEQ in Premix Bag 1 BAG IVPB SCH ×2 (15:38→18:31)
[2022-10-17] MEDS: Pantoprazole 40 MG VIAL IVP SCH (19:57)
[2022-10-17 20:37] LABS: Anion Gap 12 mmol/L (10-20); BUN (Urea Nitrogen) 4 mg/dL (8.9-20.6); Calc. Creatinine Clearance 194 mL/min (70-130); Calcium 7.1 mg/dL (7.8-10.44); Carbon Dioxide 34 mmol/L (22-29); Chloride 84 mmol/L (98-107); Estimated GFR 116; Glucose 104 mg/dL (70-105); Sodium 128 mmol/L (136-145)
[2022-10-17] MEDS: Potassium Chloride 20 MEQ TAB PO SCH ×2 (21:59→23:50)
[2022-10-18 01:01] LABS: Platelet Count 320 10x3/uL (130-400)
[2022-10-18 04:58] LABS: #Lymphocytes 0.8 thou/uL (1.20-3.40); #Monocytes 0.3 thou/uL (0.11-0.59); #Neutrophils 5.1 thou/uL (1.40-6.50); %Basophils 0.3 % (0.0-1.0); %Eosinophils 0.2 % (0.0-10.0); %Lymphocytes 13.5 % (21.0-51.0); %Monocytes 4.5 % (0.0-10.0); %Neutrophils 81.6 % (42.0-75.0); Hemoglobin 6.5 g/dL (14.0-18.0); Mean Corpuscular HGB CONC 35.1 g/dL (32.0-36.0); Mean Corpuscular Hemoglobin 29.6 pg (27.0-31.0); Mean Corpuscular Volume 84.3 fl (78.0-98.0); Mean Platelet Volume 7.2 fL (7.4-10.4); Platelet Count 343 10x3/uL (130-400); RBC Distribution Width 17.5 % (11.5-14.5); Red Blood Cell (RBC) Count 2.21 mill/uL (4.70-6.10); White Blood Cell (WBC) Count 6.3 10x3/uL (4.8-10.8)
[2022-10-18 05:17] LABS: Anion Gap 13 mmol/L (10-20); BUN (Urea Nitrogen) 4 mg/dL (8.9-20.6); Calc. Creatinine Clearance 194 mL/min (70-130); Calcium 7.6 mg/dL (7.8-10.44); Carbon Dioxide 35 mmol/L (22-29); Chloride 89 mmol/L (98-107); Estimated GFR 116; Glucose 104 mg/dL (70-105); Sodium 135 mmol/L (136-145)
[2022-10-18 05:21] LABS: Potassium 2.1 mmol/L (3.5-5.1)
[2022-10-18 05:32] LABS: Ferritin 891.01 ng/mL (22-322)
[2022-10-18 05:55] LABS: HBCM Index 0.07 S/CO (0-0.79); HBSAB Concentration Less than 8.00 mIU/mL; HBSAg Index 0.28 S/CO (0-0.99); Hep A IgM AB Non-Reactive (NonReactive); Hep A IgM S/CO 0.17 S/CO (0-0.79); Hep B Surf AB Non-Reactive (NonReactive); Hep B Surf Ag Non-Reactive S/CO (NonReactive); Hep C IgG Ab Non-Reactive (NonReactive); Hep C Index 0.16 S/CO (0-0.79); Hepatitis B Core IgM Abs Non-Reactive (NonReactive)
[2022-10-18] MEDS: Potassium Chloride 20 MEQ in Premix Bag 1 BAG IVPB SCH ×6 (05:57→20:35)
[2022-10-18] MEDS: Multivit, Therapeutic 1 TAB PO SCH (08:55)
[2022-10-18] MEDS: Folic Acid 1 MG TAB PO SCH (08:55)
[2022-10-18] MEDS: Pantoprazole 40 MG VIAL IVP SCH ×2 (08:55→20:41)
[2022-10-18 08:56] LABS: Hemoglobin 6.6 g/dL (14.0-18.0)
[2022-10-18] MEDS ORDERED: FLU VACC QS2022-23(6MO UP)/PF 60 MCG/0.5 ML SYRINGE IM ONE (09:00)
[2022-10-18 09:16] LABS: Anion Gap 9 mmol/L (10-20); BUN (Urea Nitrogen) 4 mg/dL (8.9-20.6); Calc. Creatinine Clearance 188 mL/min (70-130); Calcium 7.3 mg/dL (7.8-10.44); Carbon Dioxide 35 mmol/L (22-29); Chloride 90 mmol/L (98-107); Estimated GFR 115; Glucose 98 mg/dL (70-105); Iron 188 ug/dL (65-175); Iron Binding Capacity, Total 171 mcg/dL (261-462); Magnesium 1.9 mg/dL (1.6-2.6); Sodium 132 mmol/L (136-145)
[2022-10-18 09:28] LABS: Potassium 2.3 mmol/L (3.5-5.1)
[2022-10-18] MEDS ORDERED: Magnesium 2 GM/50 ML(in water) 2 GM in Premix Bag 1 BAG IVPB SCH (10:15)
[2022-10-18] MEDS ORDERED: Potassium Chloride 20 MEQ TAB PO SCH ×2 (11:45→16:58)
[2022-10-18] MEDS: Thiamine HCl 200 MG/2 ML VIAL SLOW IVP SCH (14:18)
[2022-10-18] MEDS ORDERED: Lorazepam 1 MG TAB PO PRN (14:27)
[2022-10-18 15:54] LABS: Hemoglobin 7.1 g/dL (14.0-18.0); Platelet Count 360 10x3/uL (130-400)
[2022-10-18 16:19] LABS: Anion Gap 10 mmol/L (10-20); BUN (Urea Nitrogen) Less than 4 mg/dL (8.9-20.6); Calc. Creatinine Clearance 194 mL/min (70-130); Calcium 7.5 mg/dL (7.8-10.44); Carbon Dioxide 33 mmol/L (22-29); Chloride 92 mmol/L (98-107); Estimated GFR 116; Glucose 109 mg/dL (70-105); Sodium 133 mmol/L (136-145)
[2022-10-18 16:23] LABS: Potassium 2.3 mmol/L (3.5-5.1)
[2022-10-18] MEDS ORDERED: Potassium Chloride 40 MEQ in Premix Bag 1 BAG IVPB STA (16:58)
[2022-10-18] MEDS: NS 0.9% w/ 20 MEQ KCL 1,000 ML/1,000 ML BAG IV SCH (17:25)
[2022-10-18] MEDS: Loperamide HCl 2 MG CAP PO PRN ×2 (17:25→21:55)
[2022-10-18 23:53] LABS: Anion Gap 8 mmol/L (10-20); BUN (Urea Nitrogen) Less than 4 mg/dL (8.9-20.6); Calc. Creatinine Clearance 206 mL/min (70-130); Calcium 7.6 mg/dL (7.8-10.44); Carbon Dioxide 35 mmol/L (22-29); Chloride 95 mmol/L (98-107); Estimated GFR 118; Glucose 98 mg/dL (70-105); Sodium 136 mmol/L (136-145)
[2022-10-18 23:58] LABS: Potassium 2.4 mmol/L (3.5-5.1)
[2022-10-19] MEDS ORDERED: Potassium Chloride 20 MEQ in Premix Bag 1 BAG IVPB SCH (02:00)
[2022-10-19 03:23] LABS: #Eosinphils 0.1 thou/uL (0.0-0.7); #Lymphocytes 1.5 thou/uL (1.20-3.40); #Monocytes 0.4 thou/uL (0.11-0.59); #Neutrophils 7.5 thou/uL (1.40-6.50); %Basophils 0.1 % (0.0-1.0); %Eosinophils 0.6 % (0.0-10.0); %Lymphocytes 15.7 % (21.0-51.0); %Monocytes 3.9 % (0.0-10.0); %Neutrophils 79.7 % (42.0-75.0); Hemoglobin 7.5 g/dL (14.0-18.0); Mean Corpuscular Hemoglobin 29.9 pg (27.0-31.0); Mean Corpuscular Volume 85.5 fl (78.0-98.0); Mean Platelet Volume 7.1 fL (7.4-10.4); Platelet Count 352 10x3/uL (130-400); RBC Distribution Width 16.9 % (11.5-14.5); Red Blood Cell (RBC) Count 2.52 mill/uL (4.70-6.10); White Blood Cell (WBC) Count 9.4 10x3/uL (4.8-10.8)
[2022-10-19 03:26] LABS: Potassium 2.5 mmol/L (3.5-5.1)
[2022-10-19 03:39] LABS: Anion Gap 11 mmol/L (10-20); BUN (Urea Nitrogen) Less than 4 mg/dL (8.9-20.6); Calc. Creatinine Clearance 203 mL/min (70-130); Calcium 7.7 mg/dL (7.8-10.44); Carbon Dioxide 33 mmol/L (22-29); Chloride 97 mmol/L (98-107); Estimated GFR 117; Glucose 98 mg/dL (70-105); Sodium 138 mmol/L (136-145)
[2022-10-19 03:50] LABS: Potassium 2.5 mmol/L (3.5-5.1)
[2022-10-19] MEDS ORDERED: Potassium Chloride 20 MEQ TAB PO SCH ×3 (04:00→08:30)
[2022-10-19] MEDS: NS 0.9% w/ 20 MEQ KCL 1,000 ML/1,000 ML BAG IV SCH ×2 (06:16→17:09)
[2022-10-19] MEDS ORDERED: Magnesium 2 GM/50 ML(in water) 2 GM in Premix Bag 1 BAG IVPB SCH ×2 (08:00→11:00)
[2022-10-19] MEDS: Multivit, Therapeutic 1 TAB PO SCH (08:27)
[2022-10-19] MEDS: Folic Acid 1 MG TAB PO SCH (08:27)
[2022-10-19] MEDS: Pantoprazole 40 MG VIAL IVP SCH ×2 (08:27→20:22)
[2022-10-19] MEDS ORDERED: Spironolactone 25 MG TAB PO SCH (08:30)
[2022-10-19] MEDS ORDERED: Potassium Chloride 40 MEQ in Premix Bag 1 BAG IVPB SCH (09:00)
[2022-10-19] MEDS: Potassium Chloride 20 MEQ in Premix Bag 1 BAG IVPB SCH ×2 (09:56→11:20)
[2022-10-19 10:33] LABS: Anion Gap 11 mmol/L (10-20); BUN (Urea Nitrogen) Less than 4 mg/dL (8.9-20.6); Calc. Creatinine Clearance 206 mL/min (70-130); Calcium 7.5 mg/dL (7.8-10.44); Carbon Dioxide 29 mmol/L (22-29); Chloride 97 mmol/L (98-107); Estimated GFR 118; Glucose 98 mg/dL (70-105); Phosphorus 1.6 mg/dL (2.3-4.7); Sodium 134 mmol/L (136-145)
[2022-10-19] MEDS: PHOS-NAK 1 PKT PACK PO SCH ×2 (12:04→15:00)
[2022-10-19 14:17] LABS: Magnesium 2.5 mg/dL (1.6-2.6); Potassium 3.8 mmol/L (3.5-5.1)
[2022-10-19] MEDS ORDERED: Lorazepam 1 MG TAB PO PRN (14:27)
[2022-10-19] MEDS: Thiamine HCl 200 MG/2 ML VIAL SLOW IVP SCH (15:00)
[2022-10-19] MEDS ORDERED: GoLYTELY 4,000 ml Bottle PO SCH (18:00)
[2022-10-20 05:12] LABS: #Eosinphils 0.1 thou/uL (0.0-0.7); #Lymphocytes 1.7 thou/uL (1.20-3.40); #Monocytes 0.3 thou/uL (0.11-0.59); %Basophils 0.3 % (0.0-1.0); %Eosinophils 0.9 % (0.0-10.0); %Lymphocytes 18.6 % (21.0-51.0); %Monocytes 3.5 % (0.0-10.0); %Neutrophils 76.7 % (42.0-75.0); Hemoglobin 7.4 g/dL (14.0-18.0); Mean Corpuscular HGB CONC 34.2 g/dL (32.0-36.0); Mean Corpuscular Hemoglobin 29.3 pg (27.0-31.0); Mean Corpuscular Volume 85.8 fl (78.0-98.0); Mean Platelet Volume 7.3 fL (7.4-10.4); Platelet Count 364 10x3/uL (130-400); RBC Distribution Width 17.5 % (11.5-14.5); Red Blood Cell (RBC) Count 2.52 mill/uL (4.70-6.10); White Blood Cell (WBC) Count 9.1 10x3/uL (4.8-10.8)
[2022-10-20 05:26] LABS: Phosphorus 1.9 mg/dL (2.3-4.7)
[2022-10-20 05:31] LABS: Anion Gap 11 mmol/L (10-20); BUN (Urea Nitrogen) Less than 4 mg/dL (8.9-20.6); Calc. Creatinine Clearance 210 mL/min (70-130); Calcium 7.5 mg/dL (7.8-10.44); Carbon Dioxide 29 mmol/L (22-29); Chloride 98 mmol/L (98-107); Estimated GFR 118; Glucose 96 mg/dL (70-105); Potassium 2.7 mmol/L (3.5-5.1); Sodium 135 mmol/L (136-145)
[2022-10-20 06:13] LABS: Alpha-1-Antitrypsin 225 mg/dL (101-187)
[2022-10-20] MEDS ORDERED: Potassium Phosphate 15 MMOL in Sodium Chloride 0.9% 100 ML IVPB SCH (08:00)
[2022-10-20] MEDS ORDERED: Magnesium 2 GM/50 ML(in water) 2 GM in Premix Bag 1 BAG IVPB SCH (08:00)
[2022-10-20] MEDS: Potassium Chloride 20 MEQ in Premix Bag 1 BAG IVPB SCH ×5 (08:01→18:25)
[2022-10-20] MEDS: Spironolactone 25 MG TAB PO SCH (08:02)
[2022-10-20] MEDS: NS 0.9% w/ 20 MEQ KCL 1,000 ML/1,000 ML BAG IV SCH (08:02)
[2022-10-20 08:53] LABS: Anion Gap 13 mmol/L (10-20); BUN (Urea Nitrogen) Less than 4 mg/dL (8.9-20.6); Calc. Creatinine Clearance 200 mL/min (70-130); Calcium 7.6 mg/dL (7.8-10.44); Carbon Dioxide 24 mmol/L (22-29); Chloride 100 mmol/L (98-107); Estimated GFR 117; Glucose 96 mg/dL (70-105); Potassium 2.8 mmol/L (3.5-5.1); Sodium 134 mmol/L (136-145)
[2022-10-20] MEDS ORDERED: GLYCOPYRROLATE/PF 0.2 MG/ML VIAL ONE (10:51)
[2022-10-20] MEDS ORDERED: Glycopyrrolate 0.2 MG/ML 5 ML SYRINGE ONE (10:59)
[2022-10-20] MEDS ORDERED: PROPOFOL 200 MG/20 ML VIAL ONE (10:59)
[2022-10-20 11:15] LABS: Smooth Muscle Total ABS 12 Units (0-19)
[2022-10-20] MEDS ORDERED: Ipratropium/Albuterol 3 ML NEB ONE (12:29)
[2022-10-20] MEDS: Folic Acid 1 MG TAB PO SCH (13:28)
[2022-10-20] MEDS: Multivit, Therapeutic 1 TAB PO SCH (13:29)
[2022-10-20] MEDS: Thiamine 100 MG TAB PO SCH (13:29)
[2022-10-20] MEDS: Pantoprazole 40 MG VIAL IVP SCH (13:29)
[2022-10-20 13:51] LABS: EliA Vaculitis New Method **** NEW METHOD ****
[2022-10-20 14:04] LABS: Anion Gap 11 mmol/L (10-20); BUN (Urea Nitrogen) Less than 4 mg/dL (8.9-20.6); Calc. Creatinine Clearance 191 mL/min (70-130); Carbon Dioxide 29 mmol/L (22-29); Chloride 100 mmol/L (98-107); Estimated GFR 115; Glucose 91 mg/dL (70-105); Potassium 3.2 mmol/L (3.5-5.1); Sodium 137 mmol/L (136-145)
[2022-10-20] MEDS ORDERED: Lorazepam 0.5 MG TAB PO PRN (14:27)
[2022-10-21 05:27] LABS: #Eosinphils 0.1 thou/uL (0.0-0.7); #Lymphocytes 1.8 thou/uL (1.20-3.40); #Monocytes 0.3 thou/uL (0.11-0.59); #Neutrophils 5.5 thou/uL (1.40-6.50); %Basophils 0.1 % (0.0-1.0); %Eosinophils 1.4 % (0.0-10.0); %Lymphocytes 23.1 % (21.0-51.0); %Monocytes 4.1 % (0.0-10.0); %Neutrophils 71.3 % (42.0-75.0); Hemoglobin 7.3 g/dL (14.0-18.0); Mean Corpuscular HGB CONC 32.4 g/dL (32.0-36.0); Mean Corpuscular Hemoglobin 28.6 pg (27.0-31.0); Mean Platelet Volume 7.8 fL (7.4-10.4); Platelet Count 342 10x3/uL (130-400); RBC Distribution Width 17.8 % (11.5-14.5); Red Blood Cell (RBC) Count 2.55 mill/uL (4.70-6.10); White Blood Cell (WBC) Count 7.8 10x3/uL (4.8-10.8)
[2022-10-21 05:51] LABS: Anion Gap 14 mmol/L (10-20); BUN (Urea Nitrogen) Less than 4 mg/dL (8.9-20.6); Calc. Creatinine Clearance 200 mL/min (70-130); Calcium 8.1 mg/dL (7.8-10.44); Carbon Dioxide 22 mmol/L (22-29); Chloride 102 mmol/L (98-107); Estimated GFR 117; Glucose 85 mg/dL (70-105); Potassium 3.6 mmol/L (3.5-5.1); Sodium 134 mmol/L (136-145)
[2022-10-21] MEDS ORDERED: Potassium Chloride 20 MEQ TAB PO SCH ×2 (07:30→12:00)
[2022-10-21] MEDS: Spironolactone 25 MG TAB PO SCH (08:01)
[2022-10-21] MEDS: NS 0.9% w/ 20 MEQ KCL 1,000 ML/1,000 ML BAG IV SCH (08:35)
[2022-10-21] MEDS: Thiamine 100 MG TAB PO SCH (08:50)
[2022-10-21] MEDS: Folic Acid 1 MG TAB PO SCH (08:51)
[2022-10-21] MEDS: Citalopram 20 MG TAB PO SCH (08:51)
[2022-10-21] MEDS: Multivit, Therapeutic 1 TAB PO SCH (08:51)
[2022-10-21] MEDS ORDERED: Non-Formulary Item 1 EACH (Citalopram Hydrobromide [Citalopram Hbr] 40 MG Tablet) PO SCH (09:00)
[2022-10-21] MEDS ORDERED: Ipratropium/Albuterol 3 ML NEB NEB SCH (11:30)
[2022-10-21] MEDS: Ipratropium/Albuterol 3 ML NEB NEB SCH ×2 (14:36→18:15)
[2022-10-21 16:42] LABS: Potassium 4.1 mmol/L (3.5-5.1)
[2022-10-21] MEDS: risperiDONE 3 MG TAB PO SCH (20:57)
[2022-10-21] MEDS: traZODone HCl 50 MG TAB PO SCH (20:57)
[2022-10-21] MEDS ORDERED: Non-Formulary Item 1 EACH (Naltrexone Hcl [Naltrexone Hcl] 50 MG Tablet) PO SCH (21:00)
[2022-10-21] MEDS ORDERED: [Naltrexone Hcl] 50 MG Tablet DT SCH (21:00)
[2022-10-22 05:41] LABS: #Eosinphils 0.1 thou/uL (0.0-0.7); #Lymphocytes 1.5 thou/uL (1.20-3.40); #Monocytes 0.4 thou/uL (0.11-0.59); #Neutrophils 4.8 thou/uL (1.40-6.50); %Basophils 0.2 % (0.0-1.0); %Lymphocytes 22.8 % (21.0-51.0); %Monocytes 5.3 % (0.0-10.0); %Neutrophils 70.8 % (42.0-75.0); Hemoglobin 7.3 g/dL (14.0-18.0); Mean Corpuscular HGB CONC 33.5 g/dL (32.0-36.0); Mean Corpuscular Hemoglobin 29.4 pg (27.0-31.0); Mean Corpuscular Volume 87.8 fl (78.0-98.0); Mean Platelet Volume 7.3 fL (7.4-10.4); Platelet Count 343 10x3/uL (130-400); RBC Distribution Width 18.4 % (11.5-14.5); Red Blood Cell (RBC) Count 2.48 mill/uL (4.70-6.10); White Blood Cell (WBC) Count 6.7 10x3/uL (4.8-10.8)
[2022-10-22 06:08] LABS: Anion Gap 12 mmol/L (10-20); BUN (Urea Nitrogen) Less than 4 mg/dL (8.9-20.6); Calc. Creatinine Clearance 193 mL/min (70-130); Calcium 8.2 mg/dL (7.8-10.44); Carbon Dioxide 26 mmol/L (22-29); Chloride 106 mmol/L (98-107); Estimated GFR 115; Glucose 86 mg/dL (70-105); Phosphorus 4.8 mg/dL (2.3-4.7); Potassium 3.9 mmol/L (3.5-5.1); Sodium 140 mmol/L (136-145)
[2022-10-22] MEDS: Ipratropium/Albuterol 3 ML NEB NEB SCH ×4 (06:25→18:50)
[2022-10-22] MEDS ORDERED: Magnesium 2 GM/50 ML(in water) 2 GM in Premix Bag 1 BAG IVPB SCH (08:00)
[2022-10-22] MEDS: Spironolactone 25 MG TAB PO SCH (08:25)
[2022-10-22] MEDS: Furosemide 40 MG/4 ML VIAL SLOW IVP SCH (08:25)
[2022-10-22] MEDS: Folic Acid 1 MG TAB PO SCH (08:25)
[2022-10-22] MEDS: Multivit, Therapeutic 1 TAB PO SCH (08:25)
[2022-10-22] MEDS: Thiamine 100 MG TAB PO SCH (08:25)
[2022-10-22] MEDS: Citalopram 20 MG TAB PO SCH (08:25)
[2022-10-22] MEDS ORDERED: Potassium Chloride 20 MEQ TAB PO SCH (11:00)
[2022-10-22] MEDS ORDERED: Furosemide 40 MG/4 ML VIAL SLOW IVP SCH (16:00)
[2022-10-22] MEDS: traZODone HCl 50 MG TAB PO SCH (20:21)
[2022-10-22] MEDS: risperiDONE 3 MG TAB PO SCH (20:21)
[2022-10-23 05:31] LABS: Anion Gap 14 mmol/L (10-20); BUN (Urea Nitrogen) Less than 4 mg/dL (8.9-20.6); Calc. Creatinine Clearance 164 mL/min (70-130); Calcium 7.9 mg/dL (7.8-10.44); Carbon Dioxide 28 mmol/L (22-29); Chloride 100 mmol/L (98-107); Estimated GFR 111; Glucose 92 mg/dL (70-105); Potassium 3.5 mmol/L (3.5-5.1); Sodium 138 mmol/L (136-145)
[2022-10-23] MEDS: Ipratropium/Albuterol 3 ML NEB NEB SCH ×2 (06:25→10:44)
[2022-10-23] MEDS ORDERED: Potassium Chloride 20 MEQ TAB PO SCH (08:00)
[2022-10-23 08:13] VITALS: BP 123/73; TEMP 97.8
[2022-10-23] MEDS: Thiamine 100 MG TAB PO SCH (09:58)
[2022-10-23] MEDS: Spironolactone 25 MG TAB PO SCH (09:58)
[2022-10-23] MEDS: Folic Acid 1 MG TAB PO SCH (09:58)
[2022-10-23] MEDS: Citalopram 20 MG TAB PO SCH (09:58)
[2022-10-23] MEDS: Furosemide 40 MG/4 ML VIAL SLOW IVP SCH (09:58)
[2022-10-23] MEDS: Multivit, Therapeutic 1 TAB PO SCH (09:58)
== END 2022-10-23 11:30 | disposition home or self-care (01) | DRG 393 ==
LOC: ERS 09:36 → 2SW 13:29
PROVIDERS: ADMIT Internal Medicine; ATTEND Internal Medicine
PROC: 30233N1 Transfusion of Nonautologous Red Blood Cells into Peripheral Vein, Percutaneous Approach (ICD-10-PCS; principal; 2022-10-17)
PROC: 0DJ08ZZ Inspection of Upper Intestinal Tract, Via Natural or Artificial Opening Endoscopic (ICD-10-PCS; 2022-10-20)
PROC: 0DBP8ZZ Excision of Rectum, Via Natural or Artificial Opening Endoscopic (ICD-10-PCS; 2022-10-20)
PROC: 0DBG8ZX Excision of Left Large Intestine, Via Natural or Artificial Opening Endoscopic, Diagnostic (ICD-10-PCS; 2022-10-20)
DX: K63.89 Other specified diseases of intestine (principal); J96.01 Acute respiratory failure with hypoxia; D62 Acute posthemorrhagic anemia; E87.1 Hypo-osmolality and hyponatremia; Z20.822 Contact with and (suspected) exposure to COVID-19; K62.1 Rectal polyp; E87.6 Hypokalemia; E83.42 Hypomagnesemia; F20.9 Schizophrenia, unspecified; R94.31 Abnormal electrocardiogram [ECG] [EKG]; F10.10 Alcohol abuse, uncomplicated; F32.A Depression, unspecified; K76.0 Fatty (change of) liver, not elsewhere classified; K52.89 Other specified noninfective gastroenteritis and colitis; E87.71 Transfusion associated circulatory overload; Z28.21 Immunization not carried out because of patient refusal; Z79.899 Other long term (current) drug therapy
CPT/HCPCS: 36415; 36416; 36430; 71045; 71046; 76705; 80048; 80053; 80074; 81256; 82103; 82105; 82390; 82553; 82607; 82728; 83516; 83540; 83550; 83690; 83735; 83880; 84100; 84443; 84484; 85025; 86015; 86706; 86708; 86850; 86900; 86901; 88305; 93005; 93010; 94640; 96365; 96366; 96375; C9113; J1940; J2704; J3411; J3475; J3480; J3490; J7620; P9016; U0003; U0005

== ENCOUNTER 2022-11-04 13:26 | Outpatient (CLI) | payer MEDICARE | END 2022-11-04 13:27 | disposition home or self-care (01) | LOC: ULT 13:26 | PROVIDERS: ATTEND Internal Medicine | DX: R06.02 Shortness of breath (principal); D64.9 Anemia, unspecified; R22.40 Localized swelling, mass and lump, unspecified lower limb; I08.1 Rheumatic disorders of both mitral and tricuspid valves | CPT/HCPCS: 93306 ==

== ENCOUNTER 2024-06-21 14:58 | Emergency (ER) | payer MEDICARE ==
[2024-06-21] MEDS ORDERED: Ketorolac Tromethamine 30 MG (1 mL) VIAL ONE (16:57)
== END 2024-06-21 17:39 | disposition home or self-care (01) ==
LOC: ERS 14:58
DX: S69.92XA Unspecified injury of left wrist, hand and finger(s), initial encounter (principal); Z87.891 Personal history of nicotine dependence; X50.0XXA Overexertion from strenuous movement or load, initial encounter
CPT/HCPCS: 73130; J1885; 96372; 99283